=== PATIENT | male | born 1970 | race American Indian/Alaskan Native ===

== ENCOUNTER 2017-09-20 16:22 | Inpatient (IN) | payer BC ==
--- NOTE | 2017-09-20 17:00 | Emergency Department Report ---
ED Palpitations HPI - General Stated Complaint: ABNORMAL EKG Time Seen by Provider: 09/20/17 16:50 Source: patient, family, EMS Mode of arrival: Stretcher Limitations: No Limitations - History of Present Illness Initial Comments: Pt is a 46 yo male who reports no history of known medical problems except for pneumonia, who presents from urgent care stating that he was sent here due to his abnormal EKg. Pt states that he has been having swelling in his legs for 2 weeks but no known history of chf, pe, liver or kidney disease. Pt states he noted some WOLFE but no chest pain. Pt denied any history of smoking or substance abuse. Pt states his primary care doctor is Dr Polanco. Complaint: rapid heart beat -: week(s) (2) Context: occured during rest Associated Symptoms: shortness of breath, nausea/vomiting (denied vomiting), anxiety. denies: chest pain Treatments Prior to Arrival: adenosine (6 mg without any change) - Related Data Home Medications Medication Instructions Recorded Confirmed Last Taken No Known Home Medications [No 09/20/17 09/20/17 Unknown Reported Home Medications] Allergies Allergy/AdvReac Type Severity Reaction Status Date / Time No Known Allergies Allergy Unverified 09/20/17 16:54 ED Review of Systems ROS: Stated complaint: ABNORMAL EKG Other details as noted in HPI Constitutional: denies: diaphoresis Eyes: denies: eye discharge ENT: denies: throat pain Respiratory: shortness of breath, SOB with exertion. denies: wheezing Cardiovascular: as per HPI, dyspnea on exertion, edema. denies: syncope Endocrine: denies: increased hunger, increased thirst Gastrointestinal: nausea. denies: abdominal pain, vomiting Skin: denies: rash Psychiatric: anxiety, other (recent increased stressors; pt states he has had several recent deaths in his family) ED Past Medical Hx - Past Medical History Previous Medical History?: No - Surgical History Past Surgical History?: No - Social History Smoking Status: Never Smoker Substance Use Type: None - Medications Home Medications: Home Medications Medication Instructions Recorded Confirmed Last Taken Type No Known Home Medications [No 09/20/17 09/20/17 Unknown History Reported Home Medications] ED Physical Exam - General Limitations: No Limitations ED Course Vital Signs 09/20/17 09/20/17 09/20/17 16:40 16:51 17:00 Temperature 98.5 F Pulse Rate 157 H 157 H 156 H Respiratory 13 16 28 H Rate Blood Pressure 139/101 139/101 Blood Pressure [Right] O2 Sat by Pulse 97 97 Oximetry 09/20/1718 09/20/17 17:42 18:04 18:18 Temperature Pulse Rate 154 H 153 H 141 H Respiratory 16 Rate Blood Pressure 136/100 Blood Pressure 113/95 [Right] O2 Sat by Pulse 96 Oximetry 09/20/17 09/20/17 19:00 21:29 Temperature Pulse Rate 114 H 151 H Respiratory 18 16 Rate Blood Pressure Blood Pressure 111/75 147/81 [Right] O2 Sat by Pulse 95 96 Oximetry - Reevaluation(s) Reevaluation #1: 09/20/17 18:17 Pt did not respond to 2 -12 mg doses of Adenosine; Pt is receiving Metoprolol q5 min as Cardizem is not available 1809-Dr Barraza called stated to call [facility] to see pt ED Medical Decision Making - Lab Data Result diagrams: 09/20/17 17:19 09/20/17 17:19 - Medical Decision Making 1845-Dr Cummings called back and stated she will see the pt in the morning and have the hospitalist order an echo 2202- I discussed this pt with Dr Daniel to ensure that he was aware of the pt; he stated that he will see the pt; earlier in the shift, Dr Talley had requested the pt's sticker go on a piece of paper with some history and room number; Dr Talley had not been able to see the pt Critical care attestation.: If time is entered above; I have spent that time in minutes in the direct care of this critically ill patient, excluding procedure time. ED Disposition Clinical Impression: Atrial fibrillation and flutter Disposition: OP ADMIT IP TO THIS HOSP Is pt being admited?: Yes Does the pt Need Aspirin: No Condition: Fair Time of Disposition: 19:44
[2017-09-20 17:33] LABS: Basophils % (Auto) 0.3 % (0.0-1.8); Eosinophils % (Auto) 0.3 % (0.0-4.3); Hemoglobin 14.4 gm/dl (11.8-15.2); Lymphocytes # (Auto) 1.9 K/mm3 (1.2-5.4); Lymphocytes % (Auto) 26.3 % (13.4-35.0); Mean Corpuscular HGB Conc 34 % (32-34); Mean Corpuscular Hemoglobin 31 pg (28-32); Mean Corpuscular Volume 92 fl (84-94); Monocytes # (Auto) 0.7 K/mm3 (0.0-0.8); Monocytes % (Auto) 9.8 % (0.0-7.3); Platelet Count 195 K/mm3 (140-440); Red Blood Count 4.69 M/mm3 (3.65-5.03); Red Cell Distribution Width 15.4 % (13.2-15.2)
[2017-09-20] MEDS ORDERED: LOPRESSOR IV ONE ×3 (17:37→21:03)
[2017-09-20 17:48] LABS: Partial Thromboplastin Time 28.6 Sec. (24.2-36.6)
[2017-09-20 18:06] LABS: BUN/Creatinine Ratio 16; Blood Urea Nitrogen 18 mg/dL (9-20); Hemolysis Index 0
[2017-09-20 18:10] LABS: Alanine Aminotransferase 45 units/L (7-56); Albumin 3.8 g/dL (3.9-5); BUN/Creatinine Ratio 15; Blood Urea Nitrogen 17 mg/dL (9-20); Hemolysis Index 2
[2017-09-20] MEDS ORDERED: NACL ONE (18:31)
--- NOTE | 2017-09-20 19:24 | Cat Scan Report ---
FINAL REPORT EXAM: CT ANGIO CHEST HISTORY: new svt, elevated ddimer TECHNIQUE: CT chest CT angiogram with reconstructions PRIORS: None. FINDINGS: There is no evidence of filling defect within the central pulmonary vasculature to suggest the presence of acute pulmonary embolus. No evidence of mediastinal pathologic lymph node enlargement Heart and great vessels are unremarkable. The aorta is normal in caliber. No focal pulmonary infiltrate identified. No pleural fluid collection seen. No acute pulmonary abnormality noted. Visualized portion of the upper abdomen demonstrates no acute change. IMPRESSION: Negative. No CT evidence of acute pulmonary embolus
--- NOTE | 2017-09-20 21:14 | XRay Report ---
FINAL REPORT PROCEDURE: XR CHEST 1V AP TECHNIQUE: Chest radiograph anteroposterior view. CPT 19843 HISTORY: Dysrhythmia COMPARISON: No prior studies are available for comparison. FINDINGS: Heart: Normal. Mediastinum/Vessels: Normal. Lungs/Pleural space: Lungs are expanded and clear. There are no infiltrates, effusions or pneumothoraces.. Bony thorax: No acute osseous abnormality. Life support devices: None. IMPRESSION: No acute cardiopulmonary abnormality.
[2017-09-20] MEDS ORDERED: HEPARIN 10,000 UNITS/10 ML IV NR (22:48)
[2017-09-20 23:17] LABS: Hemoglobin 14.3 gm/dl (11.8-15.2)
[2017-09-20 23:31] LABS: INR 1.17 (0.87-1.13)
[2017-09-20 23:32] LABS: Partial Thromboplastin Time 28.8 Sec. (24.2-36.6)
[2017-09-20 23:40] LABS: Bilirubin,Urine NEG (Negative); Blood,Urine NEG (Negative); Color,Urine Yellow (Yellow); Mucus,Urine 1+ /HPF
[2017-09-20 23:53] LABS: Amphetamine Screen,Urine PRESUMPTIVE NEGATIVE; Benzodiazepines Screen,Urine PRESUMPTIVE NEGATIVE; Cannabinoid Screen,Urine PRESUMPTIVE NEGATIVE; Cocaine Screen,Urine PRESUMPTIVE NEGATIVE; Methadone Screen,Urine PRESUMPTIVE NEGATIVE; Opiate Screen,Urine PRESUMPTIVE NEGATIVE
[2017-09-20] MEDS: HEPARIN/ 0.45% NACL-25,000 UNIT/500 ML 25,000 UNIT/500 ML BAG IV SCH (23:55)
[2017-09-21 00:57] LABS: Creatine Kinase MB 2.6 ng/mL (0.0-4.0)
[2017-09-21] MEDS ORDERED: MILK OF MAGNESIA PO ONE (01:47)
[2017-09-21] MEDS ORDERED: TYLENOL PO PRN (01:54)
[2017-09-21] MEDS ORDERED: ZOFRAN IV PRN (01:55)
[2017-09-21] MEDS ORDERED: RESTORIL PO PRN (01:56)
[2017-09-21] MEDS: LANOXIN IV SCH ×2 (02:08→06:03)
--- NOTE | 2017-09-21 02:22 | History and Physical Report ---
CHIEF COMPLAINT: Rapid heartbeat. OTHER COMPLAINT: Abnormal EKG findings. HISTORY OF PRESENT ILLNESS: The patient is a 46-year-old male, who was sent to the Emergency Room in this hospital because of rapid heartbeat and also there was finding of abnormal EKG done at an Urgent Care. There was no history of chest pain, but there is history of shortness of breath, nausea or vomiting. Also, the patient denies history of dizziness or diaphoresis, presented for evaluation after going to the urgent care and on evaluation in the Emergency Room, the patient was noted to have irregular heartbeat and was given adenosine IV without success in correcting the irregular heartbeat. Also, the patient received a dose of Lopressor without success. PAST MEDICAL HISTORY: Pertinent for hypertension. PAST SURGICAL HISTORY: Unremarkable. FAMILY HISTORY: Noncontributory. SOCIAL HISTORY: The patient does not smoke, does not drink alcohol and does not use illicit drugs. MEDICATIONS: The patient's home medications are not known. ALLERGIES: There are no known drug allergies. REVIEW OF SYSTEMS: CONSTITUTIONAL: There is no fever, no chills, no diaphoresis. HEENT: There is no headache or sore throat. CARDIOVASCULAR: There is no chest pain, but there is palpitation. RESPIRATORY: There is history of shortness of breath, but no cough. GASTROINTESTINAL: There is no nausea, no vomiting, no abdominal pain, diarrhea or constipation. NEUROLOGICAL: There is no numbness, no dizziness, no altered mental status. MUSCULOSKELETAL: There is no joint pain or swelling. DERMATOLOGICAL: There is no skin rash or itching. GENITOURINARY: There is no dysuria, hematuria or flank pain. Rest of system review is normal. PHYSICAL EXAMINATION: GENERAL: At the time of exam, the patient was found to be alert, oriented x 3 and in mild distress due to palpitation. VITAL SIGNS: Shows normal temperature with pulse of about 153, respirations of 25, blood pressure 135/91, O2 sat of 96% on room air. HEENT: Showed pupils to be equal, round, reactive to light and accommodating. Extraocular muscles are intact. NECK: Supple with no JVD or carotid bruit. CARDIOVASCULAR SYSTEM: Show first and second heart sounds are well heard with irregularly irregular rhythm, but no murmurs. RESPIRATORY: Show good air entry on both sides of the lungs with no abnormal breath sounds. GASTROINTESTINAL SYSTEM: Show abdomen to be full, soft, nontender with no organomegaly or rigidity. NEUROLOGICAL: Shows no focal deficit. MUSCULOSKELETAL SYSTEM: Show no joint swelling or tenderness. DERMATOLOGICAL SYSTEM: Showing no skin rash. GENITOURINARY: Showing no costovertebral angle tenderness. PERTINENT LABORATORY AND IMAGING STUDIES: The patient's CBC showed normal white count, normal hemoglobin and normal hematocrit with CBC differential showing elevated monocyte count of 9.8%. The patient's coagulation studies were unremarkable. The patient's D-dimer was high with a value of 490.7. The patient's chemistry was normal except for elevated total bilirubin of 2 and elevated brain natriuretic peptide of 1189. The patient's troponin level came back normal. The patient's urinalysis show elevated urine specific gravity of 1.046 with trace ketone and negative urine leukocyte esterase, negative urine nitrite and normal urine wbc and rbc. The patient's urine drug screen came back unremarkable. IMAGING STUDIES: The patient has CT angiogram of the chest done because of elevated D-dimer and the result shows no CT evidence of active pulmonary embolism and was read as negative CT angiogram. The patient also had chest x-ray done and chest x-ray shows no active cardiopulmonary abnormality. DIAGNOSIS: New onset atrial fibrillation. PLAN: The patient will be admitted to medical floor on telemetry and because there is no available Cardizem in the pharmacy, the patient will be placed on IV Lopressor 5 mg every 6 hours for heart rate above 100 and the patient will be on IV digoxin 0.25 mg every 6 hours x 4 doses and will have digoxin level checked after the 4 doses to determine how to continue the maintenance dose. The patient will have a 2D echo done in the morning and will have cardiac enzymes involving troponin, WBC count, CK-MB checked q. 6 hours x 2 more levels. The patient will continue Cardiology consult with Dr. Cummings who was notified of the patient's presentation and he requested that 2D echo be done this morning. The patient will be on oxygen by nasal cannula at 2 liter per minute and will be on p.r.n. medications like Tylenol 650 mg by mouth every 4 hours for fever and headache and IV Zofran 4 mg every 6 hours as needed for nausea and vomiting. The patient will be started on IV heparin with bolus dose and drip. The patient's diet will be 2-g sodium diet. [facility]# [id number] OCN/NTS MTDD
[2017-09-21 07:09] LABS: Creatine Kinase MB 2.4 ng/mL (0.0-4.0)
[2017-09-21] MEDS: LOPRESSOR IV PRN (09:33)
--- NOTE | 2017-09-21 10:28 | Consultation ---
History of Present Illness Consult date: 09/21/17 Requesting physician: NESTOR CARR Consult reason: arrhythmia, atrial fibrillation History of present illness: The pt is a 46 YO male with a past medical history significant for HTN, pneumonia, obesity. He is previously unknown to our practice. He presented to urgent care yesterday with complaints of progressively worsening SOB, WOLFE, orthopnea and BLE edema for the past 2 weeks. He was found to be tachycardic and heart failure was suspected and thus he was referred to ED for further evaluation/management. Following arrival in ED, pt was found to be tachycardic with ECG consistent with AFlutter with 2:1 AV conduction with HR in 150s. On evaluation, pt remains in apparent AFlutter with HR in 150s, BPs elevated. Pt denies any chest pain, palpitations, n/v, diaphoresis, dizziness or syncope. Pt denies any prior cardiac history. Pt reports recent weight gain and his at bedside states that he does not sleep well throughout the night due to snoring and apneic periods. Pt has never been tested for or diagnosed with sleep apnea. Past History Past Medical History: hypertension Past Surgical History: No surgical history Social history: , lives with family. denies: smoking, alcohol abuse, prescription drug abuse Medications and Allergies Allergies Allergy/AdvReac Type Severity Reaction Status Date / Time No Known Allergies Allergy Unverified 09/20/17 16:54 Home Medications Medication Instructions Recorded Confirmed Last Taken Type No Known Home Medications [No 09/20/17 09/20/17 Unknown History Reported Home Medications] Active Meds: Active Medications Acetaminophen (Tylenol) 650 mg PO Q4H PRN PRN Reason: For Pain/Fever/Headache Heparin Sodium/Sodium Chloride (Heparin/ 0.45% Nacl-25,000 Unit/500 Ml) 25,000 unit in 500 mls @ 30 mls/hr IV TITR BC; Protocol Last Admin: 09/20/17 23:55 Dose: 1,500 units/hr, 30 mls/hr Amiodarone HCl 150 mg/ (Dextrose) 100 mls @ 600 mls/hr IV ONCE ONE; Protocol Stop: 09/21/17 10:39 Amiodarone HCl 900 mg/ (Dextrose) 500 mls @ 33.33 mls/hr IV DIRECT BC; Protocol Metoprolol Tartrate (Lopressor) 5 mg IV Q6H PRN PRN Reason: Tachyarrhythmias Last Admin: 09/21/17 09:33 Dose: 5 mg Ondansetron HCl (Zofran) 4 mg IV Q8H PRN PRN Reason: Nausea And Vomiting Temazepam (Restoril) 15 mg PO QHS PRN PRN Reason: Sleep Review of Systems Constitutional: no fever, no chills, no sweats Ears, nose, mouth and throat: no ear pain, no nose pain, no sinus pressure, no sinus pain Cardiovascular: orthopnea, edema, shortness of breath, dyspnea on exertion, paroxysmal nocturnal dyspnea, high blood pressure, leg edema, decreased exercise tolerance, no chest pain, no palpitations, no rapid/irregular heart beat, no syncope, no lightheadedness Respiratory: shortness of breath, dyspnea on exertion, no cough, no congestion, no wheezing, no pain on inspiration Gastrointestinal: no abdominal pain, no nausea, no vomiting, no diarrhea, no constipation, no change in bowel habits Genitourinary Male: no dysuria, no hematuria, no flank pain, no discharge, no urinary frequency, no urinary hesitancy Musculoskeletal: no neck stiffness, no neck pain, no shooting arm pain, no arm numbness/tingling, no low back pain, no shooting leg pain, no leg numbness/ tingling, no redness of joints Integumentary: no rash, no pruritis, no redness, no sores, no wounds Neurological: no head injury, no paralysis, no weakness, no parathesias, no numbness, no tingling, no seizures, no syncope Psychiatric: no anxiety Endocrine: no cold intolerance, no heat intolerance Hematologic/Lymphatic: no easy bruising, no easy bleeding, no lymphadenopathy Allergic/Immunologic: no urticaria, no wheezing, no persistent infections Physical Examination Vital Signs Pulse Resp 157 H 13 09/20/17 16:40 09/20/17 16:40 General appearance: no acute distress HEENT: Positive: PERRL, Normocephaly, Mucus Membranes Moist Neck: Positive: neck supple, trachea midline Cardiac: Positive: irregularly irregular, S1/S2, Tachycardia Lungs: Positive: Decreased Breath Sounds Neuro: Positive: Grossly Intact, Cranial Nerve 2-12 Intact Abdomen: Positive: Soft. Negative: Tender Skin: Positive: Clear. Negative: Rash, Wound Musculoskeletal: No Pain, Normal Range of Motion Extremities: Present: +2 Edema (BLE) Results 09/20/17 23:07 09/20/17 17:19 Cardiac Enzymes 09/20/17 09/21/17 09/21/17 Range/Units 17:19 00:23 06:18 AST 38 (5-40) units/L CK-MB (CK-2) 2.6 2.4 (0.0-4.0) ng/mL Coagulation 09/20/17 09/20/17 Range/Units 17: 23:07 PT 15.6 H (12.2-14.9) Sec. INR 1.17 H (0.87-1.13) APTT 28.6 28.8 (24.2-36.6) Sec. CBC 09/20/17 09/20/17 Range/Units 17: 23:07 WBC 7.1 (4.5-11.0) K/mm3 RBC 4.69 (3.65-5.03) M/mm3 Hgb 14.4 14.3 (11.8-15.2) gm/dl Hct 43.0 44.0 (35.5-45.6) % Plt Count 195 216 (140-440) K/mm3 Lymph # 1.9 (1.2-5.4) K/mm3 [place] # 0.7 (0.0-0.8) K/mm3 Eos # 0.0 (0.0-0.4) K/mm3 Baso # 0.0 (0.0-0.1) K/mm3 Comprehensive Metabolic Panel 09/20/17 09/20/17 Range/Units 17:19 17:19 Sodium 139 140 (137-145) mmol/L Potassium 4.3 4.3 (3.6-5.0) mmol/L Chloride 99.6 100.5 (98-107) mmol/L Carbon Dioxide 24 23 (22-30) mmol/L BUN 18 17 (9-20) mg/dL Creatinine 1.1 1.1 (0.8-1.5) mg/dL Glucose 77 78 (75-100) mg/dL Calcium 9.0 9.0 (8.4-10.2) mg/dL AST 38 (5-40) units/L ALT 45 (7-56) units/L Alkaline Phosphatase 59 (35-129) units/L Total Protein 7.0 (6.3-8.2) g/dL Albumin 3.8 L (3.9-5) g/dL - Imaging and Cardiology Echo: pending EKG: report reviewed, image reviewed EKG interpretations - Telemetry EKG Rhythm: Atrial Flutter - EKG Supraventricular dysrhythmia: atrial flutter Assessment and Plan Initiate IV amio. Continue close observation. Pt may require CCU placement if HR is not improved with IV amio and/or he becomes hemodynamically unstable. Obtain echo once HR is optimized. Continue IV heparin. Consider transition to OAC prior to hospital discharge. Initiate diuresis with IV lasix. Repeat BMP in AM. Obtain thyroid profile. Recommend OP sleep study as there is high suspicion for sleep apnea. Further recommendations to follow per hospital course. Assessment and plan reviewed with pt and pt's at bedside. The patient has been seen in conjunction with Dr. Diaz who agrees with the assessment and plan of care. - Patient Problems (1) Atrial flutter with rapid ventricular response Current Visit: Yes Status: Acute (2) Acute heart failure Current Visit: Yes Status: Acute (3) HTN (hypertension) Current Visit: Yes Status: Chronic (4) Obesity Current Visit: Yes Status: Chronic (5) Elevated d-dimer Current Visit: Yes Status: Acute Plan to address problem: Chest CTA negative for PE
[2017-09-21] MEDS ORDERED: CORDARONE 150 MG in D5W 97 ML IV ONE (10:30)
[2017-09-21] MEDS: CORDARONE 900 MG in D5W 482 ML IV SCH (11:02)
[2017-09-21] MEDS: LASIX IV SCH ×2 (11:03→19:03)
[2017-09-21] MEDS: HEPARIN/ 0.45% NACL-25,000 UNIT/500 ML 25,000 UNIT/500 ML BAG IV SCH ×2 (11:03→18:23)
--- NOTE | 2017-09-21 14:47 | Progress Note ---
Assessment and Plan Assessment and plan: Patient is a 46 yo man with a history of untreated hypertension for at least a year and morbid obesity who presented initially to urgent care with sob and leg edema. He was found to have extremely high heart rate unresponsive to Adenosine and admit to Telemetry. Heart rate as high as 162, it appears he has aflutter with RVR -Tachyarrhythmia, suspect aflutter with rvr: on iv heparin, Cardiology has seen and started on IV amiodarone drip, HR still uncontrolled, I ordered to transfer to ICU, CCM will evaluate -Untreated Hypertension: low salt diet, start antihypertensives -Morbid obesity: need lifestyle modification -Grief reaction from father sudden in Dec -Suspected acute heart failure: treat with iv lasix, echo pending. History Interval history: Patient was seen and examined. Follow-up on current diagnosis of tachycardia. Overnight uneventful. Patient denies any chest pain, shortness breath, nausea/ vomiting or severe headaches. Imaging, nursing note, chart, labs and old chart reviewed. Discussed with patient. at bedside. Hospitalist Physical - Physical exam Narrative exam: GEN: WDWN, morbid obese, bmi 51.7, NAD, Awake, Alert, Orientated x 3 HEENT: NCAT, EOMI, PERRL, OP Clear NECK: supple, no adenopathy, no thyromegaly, equivocal JVD/thick neck CVS/HEART: regular tachycardia, normal S1S2, pulses present bilaterally CHEST/LUNGS: diminished bilateral bs, Symmetrical chest expansion, adequate air entry bilaterally GI/Abdomen: soft, NTND, good bowel sounds, no guarding or rebound /Bladder: no suprapubic tenderness, no CVA or paraspinal tenderness EXT/Skin: leg edema, no obvious rash MSK: FROM x 4 Neuro: CN 2-12 grossly intact, no new focal deficits Psych: calm - Constitutional Vitals: Temp Pulse Resp BP Pulse Ox 97.6 F 146 H 22 128/88 98 09/21/17 08:09 09/21/17 13:10 09/21/17 08:09 09/21/17 13:10 09/21/17 13:10 General appearance: Present: no acute distress Results - Labs CBC & Chem 7: 09/20/17 23:07 09/20/17 17:19 Labs: Laboratory Last Values WBC 7.1 K/mm3 (4.5-11.0) 09/20/17 17:19 RBC 4.69 M/mm3 (3.65-5.03) 09/20/17 17:19 Hgb 14.3 gm/dl (11.8-15.2) 09/20/17 23:07 Hct 44.0 % (35.5-45.6) 09/20/17 23:07 MCV 92 fl (84-94) 09/20/17 17:19 MCH 31 pg (28-32) 09/20/17 17:19 MCHC 34 % (32-34) 09/20/17 17:19 RDW 15.4 % (13.2-15.2) H 09/20/17 17:19 Plt Count 216 K/mm3 (140-440) 09/20/17 23:07 Lymph % (Auto) 26.3 % (13.4-35.0) 09/20/17 17:19 Levy % (Auto) 9.8 % (0.0-7.3) H 09/20/17 17:19 Eos % (Auto) 0.3 % (0.0-4.3) 09/20/17 17:19 Baso % (Auto) 0.3 % (0.0-1.8) 09/20/17 17:19 Lymph # 1.9 K/mm3 (1.2-5.4) 09/20/17 17:19 Levy # 0.7 K/mm3 (0.0-0.8) 09/20/17 17:19 Eos # 0.0 K/mm3 (0.0-0.4) 09/20/17 17:19 Baso # 0.0 K/mm3 (0.0-0.1) 09/20/17 17:19 Seg Neutrophils % 63.3 % (40.0-70.0) 09/20/17 17:19 Seg Neutrophils # 4.5 K/mm3 (1.8-7.7) 09/20/17 17:19 PT 15.6 Sec. (12.2-14.9) H 09/20/17 23:07 INR 1.17 (0.87-1.13) H 09/20/17 23:07 APTT 28.8 Sec. (24.2-36.6) 09/20/17 23:07 D-Dimer 490.77 ng/mlDDU (0-234) H 09/20/17 17:19 Heparin Anti-Xa Level 0.47 U.I./ml (0.3-0.7) 09/21/17 06:18 Sodium 140 mmol/L (137-145) 09/20/17 17:19 Potassium 4.3 mmol/L (3.6-5.0) 09/20/17 17:19 Chloride 100.5 mmol/L (98-107) 09/20/17 17:19 Carbon Dioxide 23 mmol/L (22-30) 09/20/17 17:19 Anion Gap 21 mmol/L 09/20/17 17:19 BUN 17 mg/dL (9-20) 09/20/17 17:19 Creatinine 1.1 mg/dL (0.8-1.5) 09/20/17 17:19 Estimated GFR > 60 ml/min 09/20/17 17:19 BUN/Creatinine Ratio 15 % 09/20/17 17:19 Glucose 78 mg/dL (75-100) 09/20/17 17:19 Calcium 9.0 mg/dL (8.4-10.2) 09/20/17 17:19 Magnesium 1.90 mg/dL (1.7-2.3) 09/20/17 17:19 Total Bilirubin 2.00 mg/dL (0.1-1.2) H 09/20/17 17:19 AST 38 units/L (5-40) 09/20/17 17:19 ALT 45 units/L (7-56) 09/20/17 17:19 Alkaline Phosphatase 59 units/L (35-129) 09/20/17 17:19 Total Creatine Kinase 84 units/L (55-170) 09/21/17 06:18 CK-MB (CK-2) 2.4 ng/mL (0.0-4.0) 09/21/17 06:18 CK-MB (CK-2) Rel Index 2.8 (0-4) 09/21/17 06:18 Troponin T < 0.010 ng/mL (0.00-0.029) 09/21/17 06:18 NT-Pro-B Natriuret Pep 1189 pg/mL (0-450) H 09/20/17 17:19 Total Protein 7.0 g/dL (6.3-8.2) 09/20/17 17: Albumin 3.8 g/dL (3.9-5) L 09/20/17 17: Albumin/Globulin Ratio 1.2 % 09/20/17 17:19 TSH 0.971 mlU/mL (0.270-4.200) 09/21/17 11:15 Free T4 1.32 ng/dL (0.76-1.46) 09/21/17 11:15 Urine Color Yellow (Yellow) 09/20/17 21:30 Urine Turbidity Clear (Clear) 09/20/17 21:30 Urine pH 5.0 (5.0-7.0) 09/20/17 21:30 Ur Specific [place] 1.046 (1.003-1.030) H 09/20/17 21:30 Urine Protein 100 mg/dl mg/dL (Negative) 09/20/17 21:30 Urine Glucose (UA) Neg mg/dL (Negative) 09/20/17 21:30 Urine Ketones Tr mg/dL (Negative) 09/20/17 21:30 Urine Blood Neg (Negative) 09/20/17 21:30 Urine Nitrite Neg (Negative) 09/20/17 21:30 Urine Bilirubin Neg (Negative) 09/20/17 21:30 Urine Urobilinogen 2.0 mg/dL (<2.0) 09/20/17 21:30 Ur Leukocyte Esterase Neg (Negative) 09/20/17 21:30 Urine WBC (Auto) 1.0 /HPF (0.0-6.0) 09/20/17 21:30 Urine RBC (Auto) 1.0 /HPF (0.0-6.0) 09/20/17 21:30 U Epithel Cells (Auto) < 1.0 /HPF (0-13.0) 09/20/17 21:30 Urine Mucus 1+ /HPF 09/20/17 21:30 Urine Opiates Screen Presumptive negative 09/20/17 21:30 Urine Methadone Screen Presumptive negative 09/20/17 21:30 Ur Barbiturates Screen Presumptive negative 09/20/17 21:30 Ur Phencyclidine Scrn Presumptive negative 09/20/17 21:30 Ur Amphetamines Screen Presumptive negative 09/20/17 21:30 U Benzodiazepines Scrn Presumptive negative 09/20/17 21:30 Urine Cocaine Screen Presumptive negative 09/20/17 21:30 U Marijuana (THC) Screen Presumptive negative 09/20/17 21:30 Drugs of Abuse Note Disclamer 09/20/17 21:30
[2017-09-21] MEDS ORDERED: LOPRESSOR IV ONE (16:00)
[2017-09-21] MEDS: LOPRESSOR PO SCH ×2 (16:24→22:26)
--- NOTE | 2017-09-21 18:01 | Consultation ---
History of Present Illness Consult date: 09/21/17 Requesting physician: DANNI RUELAS Reason for consult: other (Atrial fibrillation with RVR requiring hemodynamic monitoring and IV antiarrtyhmics) History of present illness: Pt is a 46 yo male who reports no history of known medical problems except for pneumonia, who presents from urgent care stating that he was sent here due to his abnormal EKG. He had travelled to [place] with his and apparently he had noted some feet swelling and fatigue then. This was about 2 weeks ago. On his return he went to an urgent care for fatigue and exertional dyspnea and leg swelling. Patient denied any history of smoking or substance abuse. Following arrival in ED, patient was found to be tachycardic with ECG consistent with AFlutter with 2:1 AV conduction with HR in 150s. On evaluation, pt remains in apparent AFlutter with HR in 150s, BPs elevated. Patient denies any chest pain, palpitations, n/v, diaphoresis, dizziness or syncope. Pt denies any prior cardiac history. Pt reports recent weight gain and his at bedside states that he does not sleep well throughout the night due to snoring and apneic periods. Pt has never been tested for or diagnosed with sleep apnea. He denies any history of CHF, PE, heart disease, respiratory disease. Patient was seen and examined. Vitals, labs, medications, chart reviewed. REVIEW OF SYSTEMS Constitutional: denies: diaphoresis Eyes: denies: eye discharge ENT: denies: throat pain Respiratory: shortness of breath, SOB with exertion. denies: wheezing Cardiovascular: as per HPI, dyspnea on exertion, edema. denies: syncope Endocrine: denies: increased hunger, increased thirst Gastrointestinal: nausea. denies: abdominal pain, vomiting Skin: denies: rash Psychiatric: anxiety, other (recent increased stressors; pt states he has had several recent deaths in his family) Past History Past Medical History: hypertension Past Surgical History: No surgical history Social history: , lives with family. denies: smoking, alcohol abuse, prescription drug abuse Medications and Allergies Allergies Allergy/AdvReac Type Severity Reaction Status Date / Time No Known Allergies Allergy Unverified 09/20/17 16:54 Home Medications Medication Instructions Recorded Confirmed Last Taken Type No Known Home Medications [No 09/20/17 09/20/17 Unknown History Reported Home Medications] Active Meds: Active Medications Acetaminophen (Tylenol) 650 mg PO Q4H PRN PRN Reason: For Pain/Fever/Headache Furosemide (Lasix) 40 mg IV 0600,1800 BC Last Admin: 09/21/17 11:03 Dose: 40 mg Heparin Sodium/Sodium Chloride (Heparin/ 0.45% Nacl-25,000 Unit/500 Ml) 25,000 unit in 500 mls @ 30 mls/hr IV TITR BC; Protocol Last Admin: 09/21/17 11:03 Dose: 1,500 units/hr, 30 mls/hr Amiodarone HCl 900 mg/ (Dextrose) 500 mls @ 33.33 mls/hr IV DIRECT BC; Protocol Last Titration: 09/21/17 17:10 Dose: 0.5 mg/min, 16.66 mls/hr Metoprolol Tartrate (Lopressor) 5 mg IV Q6H PRN PRN Reason: Tachyarrhythmias Last Admin: 09/21/17 09:33 Dose: 5 mg Metoprolol Tartrate (Lopressor) 50 mg PO TID BC Last Admin: 09/21/17 16:24 Dose: 50 mg Ondansetron HCl (Zofran) 4 mg IV Q8H PRN PRN Reason: Nausea And Vomiting Temazepam (Restoril) 15 mg PO QHS PRN PRN Reason: Sleep Physical Examination Vital signs: Vital Signs Pulse Resp 157 H 13 09/20/17 16:40 09/20/17 16:40 GEN: Well developed black man, morbid obese, bmi 51.7, NAD, Awake, Alert, Orientated x 3 HEENT: NCAT, EOMI, PERRL, OP Clear NECK: supple, no adenopathy, no thyromegaly, equivocal JVD/thick neck CVS/HEART: regular tachycardia, normal S1S2, pulses present bilaterally CHEST/LUNGS: diminished bilateral bs, Symmetrical chest expansion, adequate air entry bilaterally GI/Abdomen: soft, NTND, good bowel sounds, no guarding or rebound /Bladder: no suprapubic tenderness, no CVA or paraspinal tenderness EXT/Skin: leg edema, no obvious rash MSK: FROM x 4 Neuro: CN 2-12 grossly intact, no new focal deficits Psych: calm Results - Laboratory Findings CBC and BMP: 09/22/17 04:00 09/22/17 04:00 PT/INR, D-dimer PT 15.6 Sec. (12.2-14.9) H 09/20/17 23:07 INR 1.17 (0.87-1.13) H 09/20/17 23:07 D-Dimer 490.77 ng/mlDDU (0-234) H 09/20/17 17:19 Abnormal lab findings: Abnormal Labs 09/20/1718 18 17:19 17:19 17:19 RDW 15.4 H [place] % (Auto) 9.8 H PT INR D-Dimer 490.77 H Total Bilirubin NT-Pro-B Natriuret Pep 1189 H Albumin Ur Specific [place] 09/20/1718 18 17:19 21:30 23:07 RDW [place] % (Auto) PT 15.6 H INR 1.17 H D-Dimer Total Bilirubin 2.00 H NT-Pro-B Natriuret Pep Albumin 3.8 L Ur Specific [place] 1.046 H Assessment and Plan Atrial fibrillation with RVR Cardiomyopathy based on radiographic findings, Echo pending HTN-untreated -Severe obesity Probably sleep apnea Probable Pulmonary HTN -Continue with amiodarone for rate control -Added one dose of metoprolol for rate control -Anticoagulation -Get thyroid function studies -Get 2 D echocardiogram to evaluate right heart(pulmonary HTN) and LVEF -Sleep study as out patient - Life style modifications and weight loss -Monitor hemodynamics Care plan disicussed with the RN, patient and his who was at the bedside
[2017-09-22 04:38] LABS: Hematocrit 44.2 % (35.5-45.6); Hemoglobin 14.8 gm/dl (11.8-15.2); Mean Corpuscular HGB Conc 33 % (32-34); Mean Corpuscular Hemoglobin 31 pg (28-32); Mean Corpuscular Volume 92 fl (84-94); Platelet Count 211 K/mm3 (140-440); Red Blood Count 4.81 M/mm3 (3.65-5.03); Red Cell Distribution Width 15.2 % (13.2-15.2)
[2017-09-22 05:17] LABS: Alanine Aminotransferase 51 units/L (7-56); Albumin 3.8 g/dL (3.9-5); BUN/Creatinine Ratio 19; Blood Urea Nitrogen 21 mg/dL (9-20); Calcium 8.7 mg/dL (8.4-10.2); Chol/HDL Ratio 3.87 %; HDL Cholesterol 41 mg/dL (40-59); Hemolysis Index 7; LDL Cholesterol,Direct 97 mg/dL (50-130)
[2017-09-22] MEDS: LASIX IV SCH ×2 (05:24→17:52)
[2017-09-22] MEDS: LOPRESSOR PO SCH ×2 (09:20→13:37)
--- NOTE | 2017-09-22 09:24 | Progress Note ---
Assessment and Plan Assessment and plan: Patient is a 46 yo man with a history of untreated hypertension for at least a year and morbid obesity who presented initially to urgent care with sob and leg edema. He was found to have extremely high heart rate unresponsive to Adenosine and admit to Telemetry. Heart rate as high as 162, it appears he has aflutter with RVR -A. flutter with rvr: on iv heparin drip and IV amiodarone drip, HR controlled, ?start Warfarin vs Eliquis, will defer to Cardiology -Untreated Hypertension: low salt diet, start antihypertensives -Morbid obesity: need lifestyle modification -Grief reaction from father sudden in Dec -Suspected Acute heart failure: treat with iv lasix, Echo still pending. -Suspect TAURUS: has been counseled on getting outpatient sleep study History Interval history: Patient was seen and examined. Follow-up on current diagnosis of tachycardia. Overnight uneventful except insomnia. Patient denies any chest pain, shortness breath, nausea/vomiting or severe headaches. Imaging, nursing note, chart, labs and old chart reviewed. Discussed with patient. Currently in ICU on heparin and amiodorane drip. Hospitalist Physical - Physical exam Narrative exam: GEN: WDWN, morbid obese, bmi 51.7, NAD, Awake, Alert, Orientated x 3 HEENT: NCAT, EOMI, PERRL, OP Clear NECK: supple, no adenopathy, no thyromegaly, equivocal JVD/thick neck CVS/HEART: regular irregular, normal S1S2, pulses present bilaterally CHEST/LUNGS: diminished bilateral bs, Symmetrical chest expansion, adequate air entry bilaterally GI/Abdomen: soft, NTND, good bowel sounds, no guarding or rebound /Bladder: no suprapubic tenderness, no CVA or paraspinal tenderness EXT/Skin: leg edema, no obvious rash MSK: FROM x 4 Neuro: CN 2-12 grossly intact, no new focal deficits Psych: calm - Constitutional Vitals: Temp Pulse Resp BP Pulse Ox 98.2 F 94 H 16 105/79 95 09/22/17 03:44 09/22/17 08:11 09/22/17 08:11 09/22/17 08:11 09/22/17 08:11 General appearance: Present: no acute distress Results - Labs CBC & Chem 7: 09/22/17 04:00 09/22/17 04:00 Labs: Laboratory Last Values WBC 8.2 K/mm3 (4.5-11.0) 09/22/17 04:00 RBC 4.81 M/mm3 (3.65-5.03) 09/22/17 04:00 Hgb 14.8 gm/dl (11.8-15.2) 09/22/17 04:00 Hct 44.2 % (35.5-45.6) 09/22/17 04:00 MCV 92 fl (84-94) 09/22/17 04:00 MCH 31 pg (28-32) 09/22/17 04:00 MCHC 33 % (32-34) 09/22/17 04:00 RDW 15.2 % (13.2-15.2) 09/22/17 04:00 Plt Count 211 K/mm3 (140-440) 09/22/17 04:00 Lymph % (Auto) 26.3 % (13.4-35.0) 09/20/17 17:19 [place] % (Auto) 9.8 % (0.0-7.3) H 09/20/17 17:19 Eos % (Auto) 0.3 % (0.0-4.3) 09/20/17 17:19 Baso % (Auto) 0.3 % (0.0-1.8) 09/20/17 17:19 Lymph # 1.9 K/mm3 (1.2-5.4) 09/20/17 17:19 [place] # 0.7 K/mm3 (0.0-0.8) 09/20/17 17:19 Eos # 0.0 K/mm3 (0.0-0.4) 09/20/17 17:19 Baso # 0.0 K/mm3 (0.0-0.1) 09/20/17 17:19 Seg Neutrophils % 63.3 % (40.0-70.0) 09/20/17 17:19 Seg Neutrophils # 4.5 K/mm3 (1.8-7.7) 09/20/17 17:19 PT 15.6 Sec. (12.2-14.9) H 09/20/17 23:07 INR 1.17 (0.87-1.13) H 09/20/17 23:07 APTT 28.8 Sec. (24.2-36.6) 09/20/17 23:07 D-Dimer 490.77 ng/mlDDU (0-234) H 09/20/17 17:19 Heparin Anti-Xa Level 0.50 U.I./ml (0.3-0.7) 09/22/17 06:51 Sodium 134 mmol/L (137-145) L 09/22/17 04:00 Potassium 3.9 mmol/L (3.6-5.0) 09/22/17 04:00 Chloride 94.5 mmol/L (98-107) L 09/22/17 04:00 Carbon Dioxide 23 mmol/L (22-30) 09/22/17 04:00 Anion Gap 20 mmol/L 09/22/17 04:00 BUN 21 mg/dL (9-20) H 09/22/17 04:00 Creatinine 1.1 mg/dL (0.8-1.5) 09/22/17 04:00 Estimated GFR > 60 ml/min 09/22/17 04:00 BUN/Creatinine Ratio 19 % 09/22/17 04:00 Glucose 240 mg/dL (75-100) H 09/22/17 04:00 POC Glucose 108 (70-105) H 09/22/17 05:24 Calcium 8.7 mg/dL (8.4-10.2) 09/22/17 04:00 Magnesium 1.90 mg/dL (1.7-2.3) 09/20/17 17:19 Total Bilirubin 1.10 mg/dL (0.1-1.2) 09/22/17 04:00 AST 39 units/L (5-40) 09/22/17 04:00 ALT 51 units/L (7-56) 09/22/17 04:00 Alkaline Phosphatase 76 units/L (35-129) 09/22/17 04:00 Total Creatine Kinase 84 units/L (55-170) 09/21/17 06:18 CK-MB (CK-2) 2.4 ng/mL (0.0-4.0) 09/21/17 06:18 CK-MB (CK-2) Rel Index 2.8 (0-4) 09/21/17 06:18 Troponin T < 0.010 ng/mL (0.00-0.029) 09/21/17 06:18 NT-Pro-B Natriuret Pep 1189 pg/mL (0-450) H 09/20/17 17:19 Total Protein 7.2 g/dL (6.3-8.2) 09/22/17 04:00 Albumin 3.8 g/dL (3.9-5) L 09/22/17 04:00 Albumin/Globulin Ratio 1.1 % 09/22/17 04:00 Triglycerides 111 mg/dL (2-149) 09/22/17 04:00 Cholesterol 159 mg/dL (50-199) 09/22/17 04:00 LDL Cholesterol Direct 97 mg/dL (50-130) 09/22/17 04:00 HDL Cholesterol 41 mg/dL (40-59) 09/22/17 04:00 Cholesterol/HDL Ratio 3.87 % 09/22/17 04:00 TSH 0.971 mlU/mL (0.270-4.200) 09/21/17 11:15 Free T4 1.32 ng/dL (0.76-1.46) 09/21/17 11:15 Urine Color Yellow (Yellow) 09/20/17 21:30 Urine Turbidity Clear (Clear) 09/20/17 21:30 Urine pH 5.0 (5.0-7.0) 09/20/17 21:30 Ur Specific [place] 1.046 (1.003-1.030) H 09/20/17 21:30 Urine Protein 100 mg/dl mg/dL (Negative) 09/20/17 21:30 Urine Glucose (UA) Neg mg/dL (Negative) 09/20/17 21:30 Urine Ketones Tr mg/dL (Negative) 09/20/17 21:30 Urine Blood Neg (Negative) 09/20/17 21:30 Urine Nitrite Neg (Negative) 09/20/17 21:30 Urine Bilirubin Neg (Negative) 09/20/17 21:30 Urine Urobilinogen 2.0 mg/dL (<2.0) 09/20/17 21:30 Ur Leukocyte Esterase Neg (Negative) 09/20/17 21:30 Urine WBC (Auto) 1.0 /HPF (0.0-6.0) 09/20/17 21:30 Urine RBC (Auto) 1.0 /HPF (0.0-6.0) 09/20/17 21:30 U Epithel Cells (Auto) < 1.0 /HPF (0-13.0) 09/20/17 21:30 Urine Mucus 1+ /HPF 09/20/17 21:30 Urine Opiates Screen Presumptive negative 09/20/17 21:30 Urine Methadone Screen Presumptive negative 09/20/17 21:30 Ur Barbiturates Screen Presumptive negative 09/20/17 21:30 Ur Phencyclidine Scrn Presumptive negative 09/20/17 21:30 Ur Amphetamines Screen Presumptive negative 09/20/17 21:30 U Benzodiazepines Scrn Presumptive negative 09/20/17 21:30 Urine Cocaine Screen Presumptive negative 09/20/17 21:30 U Marijuana (THC) Screen Presumptive negative 09/20/17 21:30 Drugs of Abuse Note Disclamer 09/20/17 21:30
--- NOTE | 2017-09-22 09:58 | Progress Note ---
Assessment and Plan Initiate PO amio 400mg BID and d/c amio gtt following 2nd PO dose of amio. Continue PO lopressor. Obtain echo. Continue IV heparin. Consider transition to OAC prior to hospital discharge. Continue diuresis with IV lasix. Repeat BMP in AM. Pt with probable sleep apnea. For sleep study as OP per pulmonary. Currently stable cardiac status. Pt may tx out of ICU to telemetry from cardiology standpoint. Assessment and plan reviewed with pt and pt's at bedside. The patient has been seen in conjunction with Dr. Diaz who agrees with the assessment and plan of care. - Patient Problems (1) Atrial flutter with rapid ventricular response Current Visit: Yes Status: Acute (2) Acute heart failure Current Visit: Yes Status: Acute (3) HTN (hypertension) Current Visit: Yes Status: Chronic (4) Obesity Current Visit: Yes Status: Chronic (5) Elevated d-dimer Current Visit: Yes Status: Acute Subjective Date of service: 09/22/17 Principal diagnosis: AFlutter with RVR; HF Interval history: pt resting comfortably in bed, no current cardiac complaints. Remains in AFlutter with HR in 90s, BPs stable, amio gtt infusing. BLE edema improving. Objective Last Vital Signs Temp 98.2 F 09/22/17 03:44 Pulse 94 H 09/22/17 08:11 Resp 16 09/22/17 08:11 BP 105/79 09/22/17 08:11 Pulse Ox 95 09/22/17 08:11 - Physical Examination HEENT: Positive: PERRL, Normocephaly, Mucus Membranes Moist Neck: Positive: neck supple, trachea midline Cardiac: Positive: irregularly irregular, S1/S2 Lungs: Positive: Decreased Breath Sounds Neuro: Positive: Grossly Intact, Cranial Nerve 2-12 Intact Abdomen: Positive: Soft. Negative: Tender Skin: Positive: Clear. Negative: Rash, Wound Musculoskeletal: No Pain, Normal Range of Motion Extremities: Present: +2 Edema (BLE) - Labs and Meds Cardiac Enzymes 09/22/17 Range/Units 04:00 AST 39 (5-40) units/L Lipids 09/22/17 Range/Units 04:00 Triglycerides 111 (2-149) mg/dL Cholesterol 159 (50-199) mg/dL HDL Cholesterol 41 (40-59) mg/dL Cholesterol/HDL Ratio 3.87 % CBC 09/22/17 Range/Units 04:00 WBC 8.2 (4.5-11.0) K/mm3 RBC 4.81 (3.65-5.03) M/mm3 Hgb 14.8 (11.8-15.2) gm/dl Hct 44.2 (35.5-45.6) % Plt Count 211 (140-440) K/mm3 Comprehensive Metabolic Panel 09/22/17 Range/Units 04:00 Sodium 134 L (137-145) mmol/L Potassium 3.9 (3.6-5.0) mmol/L Chloride 94.5 L (98-107) mmol/L Carbon Dioxide 23 (22-30) mmol/L BUN 21 H (9-20) mg/dL Creatinine 1.1 (0.8-1.5) mg/dL Glucose 240 H (75-100) mg/dL Calcium 8.7 (8.4-10.2) mg/dL AST 39 (5-40) units/L ALT 51 (7-56) units/L Alkaline Phosphatase 76 (35-129) units/L Total Protein 7.2 (6.3-8.2) g/dL Albumin 3.8 L (3.9-5) g/dL - Imaging and Cardiology EKG: report reviewed, image reviewed Echo: pending - Telemetry EKG Rhythm: Atrial Flutter
[2017-09-22] MEDS: CORDARONE 900 MG in D5W 482 ML IV SCH (10:20)
[2017-09-22] MEDS: HEPARIN/ 0.45% NACL-25,000 UNIT/500 ML 25,000 UNIT/500 ML BAG IV SCH (10:21)
--- NOTE | 2017-09-22 10:40 | Progress Note ---
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 - Sleep study as out patient - Life style modifications and weight loss counselled - Monitor hemodynamics per floor protocol - GI prophylaxis ordered - Flu & pneumovax addressed per protocol .....tentative transfer to telemetry once cleared by cardiology ....35' Subjective Date of service: 09/22/17 Principal diagnosis: Atrial Flutter with RVR; HFrEF (25%); Morbid Obesity; Likely TAURUS Interval history: Patient is seen today for: Atrial Flutter with RVR; HFrEF (25%); Morbid Obesity ; Likely TAURUS Seen and examined at bedside; 24hour events reviewed; nursing and respiratory care staff consulted; no adverse overnight events reported to me; sitting up in bed; remains on IV heparin; feels a little better; admits to snoring and non- restorative sleep; denies acute chest pains or palpitations Objective Vital Signs - 12hr 09/21/17 09/21/17 09/21/17 22:40 22:50 23:00 Temperature Pulse Rate 96 H 96 H 81 Pulse Rate [ From Monitor] Respiratory 20 11 L 14 Rate Blood Pressure 118/69 118/69 118/69 O2 Sat by Pulse 99 97 97 Oximetry 09/21/17 09/21/17 09/21/17 23:10 23:20 23:22 Temperature Pulse Rate 95 H 95 H 84 Pulse Rate [ From Monitor] Respiratory 14 24 29 H Rate Blood Pressure 118/69 118/69 118/69 O2 Sat by Pulse 99 99 98 Oximetry 09/21/17 09/21/17 09/21/17 23:30 23:38 23:40 Temperature 98.3 F Pulse Rate 94 H 107 H Pulse Rate [ From Monitor] Respiratory 19 14 Rate Blood Pressure 118/69 118/69 O2 Sat by Pulse 97 99 Oximetry 09/21/17 09/22/17 09/22/17 23:50 00:00 00:10 Temperature Pulse Rate 134 H 90 79 Pulse Rate [ 71 From Monitor] Respiratory 33 H 12 15 Rate Blood Pressure 118/69 118/69 116/75 O2 Sat by Pulse 99 97 Oximetry 09/22/17 09/22/17 09/22/17 00:20 00:30 00:40 Temperature Pulse Rate 84 74 93 H Pulse Rate [ From Monitor] Respiratory 9 L 16 17 Rate Blood Pressure 116/75 119/86 O2 Sat by Pulse 97 96 Oximetry 09/22/17 09/22/17 09/22/17 00:51 01:00 01:11 Temperature Pulse Rate 93 H 74 93 H Pulse Rate [ From Monitor] Respiratory 25 H 22 12 Rate Blood Pressure 119/86 135/83 135/83 O2 Sat by Pulse 98 86 96 Oximetry 09/22/17 09/22/17 09/22/17 01:21 01:30 01:41 Temperature Pulse Rate 93 H 94 H 94 H Pulse Rate [ From Monitor] Respiratory 18 16 30 H Rate Blood Pressure 135/83 131/82 131/82 O2 Sat by Pulse 92 87 96 Oximetry 09/22/17 09/22/17 09/22/17 01:51 02:01 02:11 Temperature Pulse Rate 93 H 88 93 H Pulse Rate [ From Monitor] Respiratory 19 22 14 Rate Blood Pressure 131/82 121/76 121/76 O2 Sat by Pulse 97 92 96 Oximetry 09/22/17 09/22/17 09/22/17 02:21 02:30 02:41 Temperature Pulse Rate 93 H 93 H 94 H Pulse Rate [ From Monitor] Respiratory 13 10 L 21 Rate Blood Pressure 121/76 127/75 127/75 O2 Sat by Pulse 99 100 93 Oximetry 09/22/17 09/22/17 09/22/17 02:51 03:00 03:11 Temperature Pulse Rate 94 H 93 H 93 H Pulse Rate [ From Monitor] Respiratory 20 10 L 20 Rate Blood Pressure 127/75 124/85 124/85 O2 Sat by Pulse 94 98 96 Oximetry 09/22/17 09/22/17 09/22/17 03:21 03:31 03:41 Temperature Pulse Rate 93 H 93 H 79 Pulse Rate [ From Monitor] Respiratory 18 21 12 Rate Blood Pressure 124/85 124/85 124/85 O2 Sat by Pulse 94 98 98 Oximetry 09/22/17 09/22/17 09/22/17 03:44 03:51 04:00 Temperature 98.2 F Pulse Rate 83 Pulse Rate [ 83 From Monitor] Respiratory 10 L 22 Rate Blood Pressure 124/85 O2 Sat by Pulse 98 Oximetry 09/22/17 09/22/17 09/22/17 04:01 04:11 04:21 Temperature Pulse Rate 93 H 92 H 104 H Pulse Rate [ From Monitor] Respiratory 15 13 14 Rate Blood Pressure 124/85 124/85 124/85 O2 Sat by Pulse 95 97 97 Oximetry 09/22/17 09/22/17 09/22/17 04:31 04:41 04:51 Temperature Pulse Rate 99 H 92 H 74 Pulse Rate [ From Monitor] Respiratory 19 20 17 Rate Blood Pressure 124/85 105/79 105/79 O2 Sat by Pulse 91 96 97 Oximetry 09/22/17 09/22/17 09/22/17 05:01 05:11 05:21 Temperature Pulse Rate 83 93 H 93 H Pulse Rate [ From Monitor] Respiratory 26 H 24 21 Rate Blood Pressure 105/79 105/79 105/79 O2 Sat by Pulse 96 93 96 Oximetry 09/22/17 09/22/17 09/22/17 05:31 05:41 05:51 Temperature Pulse Rate 114 H 94 H 94 H Pulse Rate [ From Monitor] Respiratory 30 H 22 27 H Rate Blood Pressure 105/79 105/79 105/79 O2 Sat by Pulse 98 94 97 Oximetry 09/22/17 09/22/17 09/22/17 06:01 06:11 06:21 Temperature Pulse Rate 93 H 94 H 93 H Pulse Rate [ From Monitor] Respiratory 25 H 25 H 25 H Rate Blood Pressure 105/79 105/79 105/79 O2 Sat by Pulse 97 95 98 Oximetry 09/22/17 09/22/17 09/22/17 06:31 06:41 06:51 Temperature Pulse Rate 94 H 89 93 H Pulse Rate [ From Monitor] Respiratory 18 30 H 14 Rate Blood Pressure 105/79 105/79 105/79 O2 Sat by Pulse 94 95 97 Oximetry 09/22/17 09/22/17 09/22/17 07:01 07:11 07:21 Temperature Pulse Rate 94 H 94 H 94 H Pulse Rate [ From Monitor] Respiratory 18 22 22 Rate Blood Pressure 105/79 105/79 105/79 O2 Sat by Pulse 95 98 94 Oximetry 09/22/17 09/22/17 09/22/17 07:31 07:41 07:51 Temperature Pulse Rate 94 H 94 H 94 H Pulse Rate [ From Monitor] Respiratory 10 L 24 30 H Rate Blood Pressure 105/79 105/79 105/79 O2 Sat by Pulse 89 97 96 Oximetry 09/22/17 09/22/17 09/22/17 07:57 08:00 08:01 Temperature 97.5 F L Pulse Rate 94 H Pulse Rate [ 94 H From Monitor] Respiratory 15 14 Rate Blood Pressure 105/79 O2 Sat by Pulse 96 96 Oximetry 09/22/17 09/22/17 09/22/17 08:11 08:21 08:31 Temperature Pulse Rate 94 H 94 H 108 H Pulse Rate [ From Monitor] Respiratory 16 18 22 Rate Blood Pressure 105/79 105/79 105/79 O2 Sat by Pulse 95 97 98 Oximetry 09/22/17 09/22/17 09/22/17 08:41 08:51 09:01 Temperature Pulse Rate 94 H 94 H 94 H Pulse Rate [ From Monitor] Respiratory 26 H 19 27 H Rate Blood Pressure 105/79 105/79 105/79 O2 Sat by Pulse 96 96 95 Oximetry 09/22/17 09/22/17 09/22/17 09:11 09:21 09:31 Temperature Pulse Rate 94 H 90 89 Pulse Rate [ From Monitor] Respiratory 18 24 20 Rate Blood Pressure 105/79 105/79 105/79 O2 Sat by Pulse 99 95 96 Oximetry 09/22/17 09/22/17 09/22/17 09:41 09:51 10:01 Temperature Pulse Rate 94 H 94 H 94 H Pulse Rate [ From Monitor] Respiratory 15 18 23 Rate Blood Pressure 105/79 105/79 105/79 O2 Sat by Pulse 99 97 97 Oximetry Constitutional: alert, appears uncomfortable, other (morbidly obese) Eyes: non-icteric ENT: oropharynx moist, other (mallampatti IV oropharynx) Neck: supple, no lymphadenopathy, no JVD, other (large neck circumference) Effort: mildly labored Ascultation: Bilateral: diminished breath sounds, rales (posterior bases) Percussion: Bilateral: not dull Cardiovascular: irregular rhythm, murmur noted Gastrointestinal: normoactive bowel sounds, soft, non-tender, other (no palpable HSM) Integumentary: rash (stasis dermatitis) Extremities: no cyanosis, pulses normal, no ischemia or petechiae, edema Neurologic: normal mental status, non-focal exam, pupils equal and round, CN II- XII normal Psychiatric: mood appropriate, affect normal CBC and BMP: 09/22/17 04:00 18 11:09 ABG, PT/INR, D-dimer: PT/INR, D-dimer PT 15.6 Sec. (12.2-14.9) H 09/20/17 23:07 INR 1.17 (0.87-1.13) H 09/20/17 23:07 D-Dimer 490.77 ng/mlDDU (0-234) H 09/20/17 17:19 Abnormal lab findings: Abnormal Labs 09/20/17 09/20/17 09/20/17 17:19 17:19 17:19 RDW 15.4 H [place] % (Auto) 9.8 H PT INR D-Dimer 490.77 H Sodium Chloride BUN Glucose POC Glucose Total Bilirubin NT-Pro-B Natriuret Pep 1189 H Albumin Ur Specific [place] 09/20/17 09/20/1718 17:19 21:30 23:07 RDW [place] % (Auto) PT 15.6 H INR 1.17 H D-Dimer Sodium Chloride BUN Glucose POC Glucose Total Bilirubin 2.00 H NT-Pro-B Natriuret Pep Albumin 3.8 L Ur Specific [place] 1.046 H 09/22/17 09/22/17 09/22/17 00:19 04:00 05:24 RDW [place] % (Auto) PT INR D-Dimer Sodium 134 L Chloride 94.5 L BUN 21 H Glucose 240 H POC Glucose 107 H 108 H Total Bilirubin NT-Pro-B Natriuret Pep Albumin 3.8 L Ur Specific [place] Chest x-ray: image reviewed (cardiomegaly without focal infiltrate or effusion) Allied health notes reviewed: nursing
[2017-09-22] MEDS: CORDARONE PO SCH ×2 (13:33→22:31)
[2017-09-22] MEDS: LOPRESSOR IV PRN (22:31)
[2017-09-23] MEDS: LOPRESSOR PO SCH ×4 (00:20→22:20)
[2017-09-23] MEDS: LASIX IV SCH ×2 (08:00→19:03)
[2017-09-23] MEDS: CORDARONE PO SCH ×2 (09:40→22:18)
--- NOTE | 2017-09-23 10:43 | Progress Note ---
Assessment and Plan Echo reviewed - EF 20-25%, mild LVH, RV mild to mod dilated, RV systolic function severely reduced, RA severely dilated. Continue PO amio and PO lopressor. Initiate lisinopril. Plan for coronary angiography on Tuesday AM to r/o ischemic CMP. Continue IV heparin. Consider transition to OAC prior to hospital discharge. Pt is a good candidate for NOAC. Continue diuresis with IV lasix. Repeat BMP in AM. Pt with probable sleep apnea. For sleep study as OP per pulmonary. Currently stable cardiac status. Pt may tx out of ICU to telemetry from cardiology standpoint. Assessment and plan reviewed with pt and pt's at bedside. The patient has been seen in conjunction with Dr. Diaz who agrees with the assessment and plan of care. - Patient Problems (1) Acute systolic heart failure Current Visit: Yes Status: Acute (2) Dilated cardiomyopathy Current Visit: Yes Status: Chronic (3) Right ventricular dysfunction Current Visit: Yes Status: Acute (4) Atrial flutter with rapid ventricular response Current Visit: Yes Status: Acute (5) HTN (hypertension) Current Visit: Yes Status: Chronic (6) Obesity Current Visit: Yes Status: Chronic (7) Elevated d-dimer Current Visit: Yes Status: Acute (8) Sleep apnea Current Visit: Yes Status: Suspected Subjective Date of service: 09/23/17 Principal diagnosis: Atrial Flutter with RVR; HFrEF (25%); Morbid Obesity; Likely TAURUS Interval history: pt resting comfortably in bed, no current cardiac complaints. Remains in AFlutter with HR in 90s, BPs stable, BLE edema improving. Objective Last Vital Signs Temp 98.0 F 09/23/17 04:00 Pulse 93 H 09/23/17 09:40 Resp 16 09/23/17 05:08 BP 136/82 09/23/17 09:40 Pulse Ox 96 09/23/17 05:08 - Physical Examination General: No Apparent Distress HEENT: Positive: PERRL, Normocephaly, Mucus Membranes Moist Neck: Positive: neck supple, trachea midline Cardiac: Positive: irregularly irregular, S1/S2 Lungs: Positive: Decreased Breath Sounds Neuro: Positive: Grossly Intact, Cranial Nerve 2-12 Intact Abdomen: Positive: Soft. Negative: Tender Skin: Positive: Clear. Negative: Rash, Wound Musculoskeletal: No Pain, Normal Range of Motion Extremities: Present: +2 Edema (BLE) - Imaging and Cardiology EKG: report reviewed, image reviewed Echo: report reviewed (EF 20-25%, mild LVH, RV mild to mod dilated, RV systolic function severely reduced, RA severely dilated, ) - Telemetry EKG Rhythm: Sinus Rhythm - Allied health notes Allied health notes reviewed: nursing
[2017-09-23 12:03] LABS: BUN/Creatinine Ratio 17; Blood Urea Nitrogen 20 mg/dL (9-20); Calcium 8.9 mg/dL (8.4-10.2); Hemolysis Index 26
[2017-09-23] MEDS: PEPCID PO SCH ×2 (12:23→22:18)
[2017-09-23] MEDS: ZESTRIL PO SCH (12:23)
--- NOTE | 2017-09-23 12:44 | Progress Note ---
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 - Sleep study as out patient - Life style modifications and weight loss counselled - Monitor hemodynamics per floor protocol - GI prophylaxis ordered - Flu & pneumovax addressed per protocol .....tentative transfer to telemetry once cleared by cardiology ....35' Subjective Date of service: 09/23/17 Principal diagnosis: Atrial Flutter with RVR; HFrEF (25%); Morbid Obesity; Likely TAURUS Interval history: Patient is seen today for: Atrial Flutter with RVR; HFrEF (25%); Morbid Obesity ; Likely TAURUS Seen and examined at bedside; 24hour events reviewed; nursing and respiratory care staff consulted; no adverse overnight events reported to me; sitting up in bed; remains on IV heparin; no bleeding; No N/V/F/C Objective Vital Signs - 12hr 09/23/17 09/23/17 09/23/17 00:51 01:01 01:04 Temperature Pulse Rate 85 80 Pulse Rate [ From Monitor] Respiratory 15 15 Rate Blood Pressure 128/73 123/79 O2 Sat by Pulse 100 100 99 Oximetry 09/23/17 09/23/17 09/23/17 01:06 01:11 01:21 Temperature Pulse Rate 91 H 86 86 Pulse Rate [ From Monitor] Respiratory 17 22 26 H Rate Blood Pressure 128/73 123/79 123/79 O2 Sat by Pulse 99 98 98 Oximetry 09/23/17 09/23/17 09/23/17 01:31 01:41 01:51 Temperature Pulse Rate 81 91 H 90 Pulse Rate [ From Monitor] Respiratory 18 24 15 Rate Blood Pressure 123/79 123/79 123/79 O2 Sat by Pulse 98 97 99 Oximetry 09/23/17 09/23/17 09/23/17 02:00 02:01 02:11 Temperature Pulse Rate 89 68 90 Pulse Rate [ From Monitor] Respiratory 14 16 Rate Blood Pressure 121/87 121/87 O2 Sat by Pulse 98 98 Oximetry 09/23/17 09/23/17 09/23/17 02:21 02:31 02:41 Temperature Pulse Rate 81 80 86 Pulse Rate [ From Monitor] Respiratory 18 13 19 Rate Blood Pressure 121/87 121/87 121/87 O2 Sat by Pulse 100 99 99 Oximetry 09/23/17 09/23/17 09/23/17 02:51 03:00 03:11 Temperature Pulse Rate 69 90 91 H Pulse Rate [ From Monitor] Respiratory 26 H 19 24 Rate Blood Pressure 121/87 132/79 132/79 O2 Sat by Pulse 99 96 99 Oximetry 09/23/17 09/23/17 09/23/17 03:21 03:31 03:41 Temperature Pulse Rate 91 H 91 H 68 Pulse Rate [ From Monitor] Respiratory 22 13 22 Rate Blood Pressure 132/79 132/79 132/79 O2 Sat by Pulse 98 100 98 Oximetry 09/23/17 09/23/17 09/23/17 03:51 04:00 04:01 Temperature 98.0 F Pulse Rate 86 91 H Pulse Rate [ 91 H From Monitor] Respiratory 24 17 16 Rate Blood Pressure 132/79 125/70 O2 Sat by Pulse 99 98 96 Oximetry 09/23/17 09/23/17 09/23/17 04:11 04:21 04:31 Temperature Pulse Rate 91 H 76 90 Pulse Rate [ From Monitor] Respiratory 22 20 20 Rate Blood Pressure 125/70 125/70 125/70 O2 Sat by Pulse 97 97 97 Oximetry 09/23/17 09/23/17 09/23/17 04:41 04:51 05:01 Temperature Pulse Rate 68 90 104 H Pulse Rate [ From Monitor] Respiratory 16 17 16 Rate Blood Pressure 125/70 125/70 134/79 O2 Sat by Pulse 99 100 97 Oximetry 09/23/17 09/23/17 09/23/17 05:08 09:40 12:23 Temperature Pulse Rate 93 H 78 Pulse Rate [ 78 From Monitor] Respiratory 16 Rate Blood Pressure 136/82 115/67 O2 Sat by Pulse 96 Oximetry Constitutional: alert, appears uncomfortable, other (morbidly obese) Eyes: non-icteric ENT: oropharynx moist, other (mallampatti IV oropharynx) Neck: supple, no lymphadenopathy, no JVD, other (large neck circumference) Effort: mildly labored Ascultation: Bilateral: diminished breath sounds, rales (posterior bases) Percussion: Bilateral: not dull Cardiovascular: irregular rhythm, murmur noted Gastrointestinal: normoactive bowel sounds, soft, non-tender, other (no palpable HSM) Integumentary: rash (stasis dermatitis) Extremities: no cyanosis, pulses normal, no ischemia or petechiae, edema Neurologic: normal mental status, non-focal exam, pupils equal and round, CN II- XII normal Psychiatric: mood appropriate, affect normal CBC and BMP: 09/26/17 04:46 09/26/17 04:46 ABG, PT/INR, D-dimer: PT/INR, D-dimer PT 15.6 Sec. (12.2-14.9) H 09/20/17 23:07 INR 1.17 (0.87-1.13) H 09/20/17 23:07 D-Dimer 490.77 ng/mlDDU (0-234) H 09/20/17 17:19 Abnormal lab findings: Abnormal Labs 09/20/17 09/20/17 09/20/17 17:19 17:19 17:19 RDW 15.4 H [place] % (Auto) 9.8 H PT INR D-Dimer 490.77 H Sodium Chloride BUN Glucose POC Glucose Total Bilirubin NT-Pro-B Natriuret Pep 1189 H Albumin Ur Specific [place] 09/20/17 09/20/17 09/20/17 17:19 21:30 23:07 RDW [place] % (Auto) PT 15.6 H INR 1.17 H D-Dimer Sodium Chloride BUN Glucose POC Glucose Total Bilirubin 2.00 H NT-Pro-B Natriuret Pep Albumin 3.8 L Ur Specific [place] 1.046 H 09/22/17 09/22/17 09/22/17 00:19 04:00 05:24 RDW [place] % (Auto) PT INR D-Dimer Sodium 134 L Chloride 94.5 L BUN 21 H Glucose 240 H POC Glucose 107 H 108 H Total Bilirubin NT-Pro-B Natriuret Pep Albumin 3.8 L Ur Specific [place] 09/22/17 09/23/17 17:52 11:09 RDW [place] % (Auto) PT INR D-Dimer Sodium Chloride BUN Glucose 101 H POC Glucose 121 H Total Bilirubin NT-Pro-B Natriuret Pep Albumin Ur Specific [place] Allied health notes reviewed: nursing
--- NOTE | 2017-09-23 13:08 | Progress Note ---
Assessment and Plan Assessment and plan: Patient is a 46 yo man with a history of untreated hypertension for at least a year and morbid obesity who presented initially to urgent care with sob and leg edema. He was found to have extremely high heart rate unresponsive to Adenosine and admit to Telemetry. Heart rate as high as 162, it appears he has aflutter with RVR -A. flutter with rvr: on iv heparin drip, was transitioned to oral rate control (off IV drips), -Heart failure; ef 20%; optimize meds, for cath on tuesday, on iv lasix -Untreated Hypertension: low salt diet, antihypertensives -Morbid obesity: need lifestyle modification -Grief reaction from father sudden in May; counseled, will refer to pyschiatry upon dc -Suspect TAURUS: has been counseled on getting outpatient sleep study as outpatient case dw cardiology History Interval history: sob is improved denies cp, palpiations or vomiting Hospitalist Physical - Physical exam Narrative exam: GEN: WDWN, morbid obese, bmi 51.7, NAD, Awake, Alert, Orientated x 3 HEENT: NCAT, EOMI, PERRL, OP Clear NECK: supple, no adenopathy, no thyromegaly, equivocal JVD/thick neck CVS/HEART: regular irregular, normal S1S2, pulses present bilaterally CHEST/LUNGS: diminished bilateral bs, Symmetrical chest expansion, GI/Abdomen: soft, NTND, good bowel sounds, no guarding or rebound /Bladder: no suprapubic tenderness, no CVA or paraspinal tenderness EXT/Skin: leg edema, no obvious rash MSK: FROM x 4 Neuro: CN 2-12 grossly intact, no new focal deficits Psych: calm - Constitutional Vitals: Temp Pulse Resp BP Pulse Ox 98.0 F 78 16 115/67 96 09/23/17 04:00 09/23/17 12:23 09/23/17 05:08 09/23/17 12:23 09/23/17 05:08 General appearance: Present: no acute distress Results - Labs CBC & Chem 7: 09/24/17 05:32 09/23/17 11:09 Labs: Laboratory Last Values WBC 8.2 K/mm3 (4.5-11.0) 09/22/17 04:00 RBC 4.81 M/mm3 (3.65-5.03) 09/22/17 04:00 Hgb 14.8 gm/dl (11.8-15.2) 09/22/17 04:00 Hct 44.2 % (35.5-45.6) 09/22/17 04:00 MCV 92 fl (84-94) 09/22/17 04:00 MCH 31 pg (28-32) 09/22/17 04:00 MCHC 33 % (32-34) 09/22/17 04:00 RDW 15.2 % (13.2-15.2) 09/22/17 04:00 Plt Count 211 K/mm3 (140-440) 09/22/17 04:00 Lymph % (Auto) 26.3 % (13.4-35.0) 09/20/17 17:19 [place] % (Auto) 9.8 % (0.0-7.3) H 09/20/17 17:19 Eos % (Auto) 0.3 % (0.0-4.3) 09/20/17 17:19 Baso % (Auto) 0.3 % (0.0-1.8) 09/20/17 17:19 Lymph # 1.9 K/mm3 (1.2-5.4) 09/20/17 17:19 [place] # 0.7 K/mm3 (0.0-0.8) 09/20/17 17:19 Eos # 0.0 K/mm3 (0.0-0.4) 09/20/17 17:19 Baso # 0.0 K/mm3 (0.0-0.1) 09/20/17 17:19 Seg Neutrophils % 63.3 % (40.0-70.0) 09/20/17 17:19 Seg Neutrophils # 4.5 K/mm3 (1.8-7.7) 09/20/17 17:19 PT 15.6 Sec. (12.2-14.9) H 09/20/17 23:07 INR 1.17 (0.87-1.13) H 09/20/17 23:07 APTT 28.8 Sec. (24.2-36.6) 09/20/17 23:07 D-Dimer 490.77 ng/mlDDU (0-234) H 09/20/17 17:19 Heparin Anti-Xa Level 0.36 U.I./ml (0.3-0.7) 09/23/17 07:45 Sodium 137 mmol/L (137-145) 09/23/17 11:09 Potassium 3.7 mmol/L (3.6-5.0) 09/23/17 11:09 Chloride 99.1 mmol/L (98-107) 09/23/17 11:09 Carbon Dioxide 25 mmol/L (22-30) 09/23/17 11:09 Anion Gap 17 mmol/L 09/23/17 11:09 BUN 20 mg/dL (9-20) 09/23/17 11:09 Creatinine 1.2 mg/dL (0.8-1.5) 09/23/17 11:09 Estimated GFR > 60 ml/min 09/23/17 11:09 BUN/Creatinine Ratio 17 % 09/23/17 11:09 Glucose 101 mg/dL (75-100) H 09/23/17 11:09 POC Glucose 121 (70-105) H 09/22/17 17:52 Calcium 8.9 mg/dL (8.4-10.2) 09/23/17 11:09 Magnesium 1.90 mg/dL (1.7-2.3) 09/20/17 17:19 Total Bilirubin 1.10 mg/dL (0.1-1.2) 09/22/17 04:00 AST 39 units/L (5-40) 09/22/17 04:00 ALT 51 units/L (7-56) 09/22/17 04:00 Alkaline Phosphatase 76 units/L (35-129) 09/22/17 04:00 Total Creatine Kinase 84 units/L (55-170) 09/21/17 06:18 CK-MB (CK-2) 2.4 ng/mL (0.0-4.0) 09/21/17 06:18 CK-MB (CK-2) Rel Index 2.8 (0-4) 09/21/17 06:18 Troponin T < 0.010 ng/mL (0.00-0.029) 09/21/17 06:18 NT-Pro-B Natriuret Pep 1189 pg/mL (0-450) H 09/20/17 17:19 Total Protein 7.2 g/dL (6.3-8.2) 09/22/17 04:00 Albumin 3.8 g/dL (3.9-5) L 09/22/17 04:00 Albumin/Globulin Ratio 1.1 % 09/22/17 04:00 Triglycerides 111 mg/dL (2-149) 09/22/17 04:00 Cholesterol 159 mg/dL (50-199) 09/22/17 04:00 LDL Cholesterol Direct 97 mg/dL (50-130) 09/22/17 04:00 HDL Cholesterol 41 mg/dL (40-59) 09/22/17 04:00 Cholesterol/HDL Ratio 3.87 % 09/22/17 04:00 TSH 0.971 mlU/mL (0.270-4.200) 09/21/17 11:15 Free T4 1.32 ng/dL (0.76-1.46) 09/21/17 11:15 Urine Color Yellow (Yellow) 09/20/17 21:30 Urine Turbidity Clear (Clear) 09/20/17 21:30 Urine pH 5.0 (5.0-7.0) 09/20/17 21:30 Ur Specific [place] 1.046 (1.003-1.030) H 09/20/17 21:30 Urine Protein 100 mg/dl mg/dL (Negative) 09/20/17 21:30 Urine Glucose (UA) Neg mg/dL (Negative) 09/20/17 21:30 Urine Ketones Tr mg/dL (Negative) 09/20/17 21:30 Urine Blood Neg (Negative) 09/20/17 21:30 Urine Nitrite Neg (Negative) 09/20/17 21:30 Urine Bilirubin Neg (Negative) 09/20/17 21:30 Urine Urobilinogen 2.0 mg/dL (<2.0) 09/20/17 21:30 Ur Leukocyte Esterase Neg (Negative) 09/20/17 21:30 Urine WBC (Auto) 1.0 /HPF (0.0-6.0) 09/20/17 21:30 Urine RBC (Auto) 1.0 /HPF (0.0-6.0) 09/20/17 21:30 U Epithel Cells (Auto) < 1.0 /HPF (0-13.0) 09/20/17 21:30 Urine Mucus 1+ /HPF 09/20/17 21:30 Urine Opiates Screen Presumptive negative 09/20/17 21:30 Urine Methadone Screen Presumptive negative 09/20/17 21:30 Ur Barbiturates Screen Presumptive negative 09/20/17 21:30 Ur Phencyclidine Scrn Presumptive negative 09/20/17 21:30 Ur Amphetamines Screen Presumptive negative 09/20/17 21:30 U Benzodiazepines Scrn Presumptive negative 09/20/17 21:30 Urine Cocaine Screen Presumptive negative 09/20/17 21:30 U Marijuana (THC) Screen Presumptive negative 09/20/17 21:30 Drugs of Abuse Note Disclamer 09/20/17 21:30
[2017-09-24] MEDS: LASIX IV SCH ×2 (05:32→18:37)
[2017-09-24] MEDS: HEPARIN/ 0.45% NACL-25,000 UNIT/500 ML 25,000 UNIT/500 ML BAG IV SCH (05:33)
[2017-09-24 06:53] LABS: Hematocrit 48.7 % (35.5-45.6); Hemoglobin 15.9 gm/dl (11.8-15.2)
[2017-09-24] MEDS: LOPRESSOR PO SCH ×3 (08:44→21:57)
--- NOTE | 2017-09-24 09:44 | Progress Note ---
Assessment and Plan Atrial fibrillation with RVR Cardiomyopathy based on radiographic findings, Echo pending HTN-untreated -Severe obesity Probably sleep apnea Probable Pulmonary HTN -Continue with amiodarone for rate control -Anticoagulation -Get thyroid function studies -Sleep study as out patient - Life style modifications and weight loss -Monitor hemodynamics Care plan disicussed with the RN, patient and his who was at the bedside Subjective Date of service: 09/24/17 Principal diagnosis: Atrial Flutter with RVR; HFrEF (25%); Morbid Obesity; Likely TAURUS Objective - Exam Narrative Exam: GEN: WDWN, morbid obese, bmi 51.7, NAD, Awake, Alert, Orientated x 3 HEENT: NCAT, EOMI, PERRL, OP Clear NECK: supple, no adenopathy, no thyromegaly, equivocal JVD/thick neck CVS/HEART: regular irregular, normal S1S2, pulses present bilaterally CHEST/LUNGS: diminished bilateral bs, Symmetrical chest expansion, adequate air entry bilaterally GI/Abdomen: soft, NTND, good bowel sounds, no guarding or rebound /Bladder: no suprapubic tenderness, no CVA or paraspinal tenderness EXT/Skin: leg edema, no obvious rash MSK: FROM x 4 Neuro: CN 2-12 grossly intact, no new focal deficits Psych: calm Vital Signs - 12hr 09/23/17 09/23/17 09/24/17 22:00 22:20 00:19 Temperature Pulse Rate 69 69 Respiratory 20 Rate Blood Pressure 115/87 112/87 O2 Sat by Pulse 99 96 Oximetry 09/24/17 09/24/17 09/24/17 00:20 05:02 07:50 Temperature 98.6 F Pulse Rate 69 66 60 Respiratory 22 20 20 Rate Blood Pressure 107/79 100/60 O2 Sat by Pulse 99 96 98 Oximetry 09/24/17 08:44 Temperature Pulse Rate Respiratory Rate Blood Pressure 100/60 O2 Sat by Pulse Oximetry Constitutional: alert, appears uncomfortable, other (morbidly obese) Eyes: non-icteric ENT: oropharynx moist, other (mallampatti IV oropharynx) Neck: supple, no lymphadenopathy, no JVD, other (large neck circumference) Effort: mildly labored Ascultation: Bilateral: diminished breath sounds, rales (posterior bases) Percussion: Bilateral: not dull Cardiovascular: irregular rhythm, murmur noted Gastrointestinal: normoactive bowel sounds, soft, non-tender, other (no palpable HSM) Integumentary: rash (stasis dermatitis) Extremities: no cyanosis, pulses normal, no ischemia or petechiae, edema Neurologic: normal mental status, non-focal exam, pupils equal and round, CN II- XII normal Psychiatric: mood appropriate, affect normal CBC and BMP: 09/24/17 05:32 09/23/17 11:09 ABG, PT/INR, D-dimer: ABG POC ABG pH 7.415 (7.35-7.45) 09/23/17 15:00 POC ABG pCO2 36.7 (35-45) 09/23/17 15:00 POC ABG pO2 88 (80-105) 09/23/17 15:00 POC ABG HCO3 23.5 09/23/17 15:00 POC ABG Total CO2 25 09/23/17 15:00 POC ABG O2 Sat 97 09/23/17 15:00 PT/INR, D-dimer PT 15.6 Sec. (12.2-14.9) H 09/20/17 23:07 INR 1.17 (0.87-1.13) H 09/20/17 23:07 D-Dimer 490.77 ng/mlDDU (0-234) H 09/20/17 17:19 Abnormal lab findings: Abnormal Labs 09/20/17 09/20/17 09/20/17 17:19 17:19 17:19 Hgb Hct RDW 15.4 H [place] % (Auto) 9.8 H PT INR D-Dimer 490.77 H Heparin Anti-Xa Level Sodium Chloride BUN Glucose POC Glucose Total Bilirubin NT-Pro-B Natriuret Pep 1189 H Albumin Ur Specific [place] 09/20/17 09/20/1718 17:19 21:30 23:07 Hgb Hct RDW [place] % (Auto) PT 15.6 H INR 1.17 H D-Dimer Heparin Anti-Xa Level Sodium Chloride BUN Glucose POC Glucose Total Bilirubin 2.00 H NT-Pro-B Natriuret Pep Albumin 3.8 L Ur Specific [place] 1.046 H 09/22/17 09/22/17 09/22/17 00:19 04:00 05:24 Hgb Hct RDW [place] % (Auto) PT INR D-Dimer Heparin Anti-Xa Level Sodium 134 L Chloride 94.5 L BUN 21 H Glucose 240 H POC Glucose 107 H 108 H Total Bilirubin NT-Pro-B Natriuret Pep Albumin 3.8 L Ur Specific [place] 09/22/17 09/23/17 09/23/17 17:52 11:09 15:52 Hgb Hct RDW [place] % (Auto) PT INR D-Dimer Heparin Anti-Xa Level Sodium Chloride BUN Glucose 101 H POC Glucose 121 H 108 H Total Bilirubin NT-Pro-B Natriuret Pep Albumin Ur Specific [place] 09/24/17 09/24/17 05:32 07:48 Hgb 15.9 H Hct 48.7 H RDW [place] % (Auto) PT INR D-Dimer Heparin Anti-Xa Level 0.20 L Sodium Chloride BUN Glucose POC Glucose Total Bilirubin NT-Pro-B Natriuret Pep Albumin Ur Specific [place] Allied health notes reviewed: nursing
--- NOTE | 2017-09-24 10:48 | Progress Note ---
Assessment and Plan acute systolic heart failure acute respiratory failure aflutter rvr now controlled morbid obesity hypercougable state htn sleep apena corey rec; cont current meds, cardiac cath in am, change to po lasix in am , discuss with pt in detail and pcp Subjective Date of service: 09/24/17 Principal diagnosis: Atrial Flutter with RVR; HFrEF (25%); Morbid Obesity; Likely COREY Interval history: pt is feeling better no palpations Objective Vital Signs Temp Pulse Resp BP Pulse Ox 09/24/17 08:44 100/60 09/24/17 07:50 98.6 F 60 20 100/60 98 09/24/17 05:02 66 20 107/79 96 09/24/17 00:20 69 22 99 09/24/17 00:19 69 20 112/87 96 09/23/17 22:20 69 115/87 09/23/17 22:00 99 09/23/17 20:40 98.7 F 68 20 114/77 96 09/23/17 18:50 68 18 108/59 99 09/23/17 18:40 108/59 99 09/23/17 18:30 68 19 108/59 97 09/23/17 18:20 68 15 108/59 98 09/23/17 18:10 69 15 108/59 96 09/23/17 18:00 81 16 108/59 100 09/23/17 17:50 69 19 101/52 98 09/23/17 17:40 91 H 16 101/52 100 09/23/17 17:30 68 19 101/52 97 09/23/17 17:20 86 24 101/52 97 09/23/17 17:10 91 H 23 101/52 97 09/23/17 17:00 87 19 101/52 67 L 09/23/17 16:50 91 H 23 113/75 97 09/23/17 16:40 97 H 12 113/75 97 09/23/17 16:30 91 H 21 113/75 97 09/23/17 16:20 91 H 15 113/75 98 09/23/17 16:10 91 H 14 113/75 97 09/23/17 16:00 98.1 F 92 H 12 113/75 97 09/23/17 15:50 91 H 14 113/68 99 09/23/17 15:45 91 H 113/68 0418 15:40 91 H 11 L 94/46 96 18 15:30 91 H 13 94/46 96 18 15:20 98 H 21 94/46 99 09/23/17 15:10 113 H 20 104/74 98 09/23/17 15:00 105 H 26 H 104/74 98 09/23/17 14:50 105 H 28 H 104/74 95 09/23/17 14:40 91 H 11 L 98 09/23/17 14:30 91 H 12 97 09/23/17 14:20 91 H 17 104/74 96 09/23/17 14:11 81 12 104/74 98 09/23/17 14:01 86 17 104/74 96 09/23/17 14:00 92 H 09/23/17 13:51 91 H 15 106/67 97 09/23/17 13:41 73 13 106/67 98 09/23/17 13:31 91 H 15 106/67 98 09/23/17 13:21 91 H 15 106/67 95 09/23/17 13:11 87 16 106/67 98 09/23/17 13:01 74 13 115/67 100 09/23/17 12:51 87 10 L 115/67 98 09/23/17 12:41 69 16 115/67 96 09/23/17 12:31 77 10 L 115/67 96 09/23/17 12:23 78 115/67 09/23/17 12:21 78 11 L 115/67 97 09/23/17 12:11 82 13 115/67 95 09/23/17 12:01 69 16 115/67 100 09/23/17 12:00 98.3 F 09/23/17 11:51 86 12 124/76 96 09/23/17 11:41 92 H 25 H 124/76 98 09/23/17 11:31 91 H 22 124/76 97 09/23/17 11:21 92 H 21 124/76 97 09/23/18 11:11 92 H 21 124/76 95 18 11:01 24 124/76 96 09/23/17 10:51 17 126/64 97 - Physical Examination General: No Apparent Distress HEENT: Positive: PERRL, Normocephaly, Mucus Membranes Moist Neck: Positive: neck supple, trachea midline Cardiac: Positive: Irregularly Regular Lungs: Positive: clear to auscultation Neuro: Positive: Grossly Intact, Cranial Nerve 2-12 Intact Abdomen: Positive: Soft. Negative: Tender Skin: Positive: Clear. Negative: Rash, Wound Musculoskeletal: No Pain, Normal Range of Motion Extremities: Absent: edema - Labs and Meds CBC 09/24/17 Range/Units 05:32 Hgb 15.9 H (11.8-15.2) gm/dl Hct 48.7 H (35.5-45.6) % Plt Count 233 (140-440) K/mm3 Comprehensive Metabolic Panel 09/23/17 Range/Units 11:09 Sodium 137 (137-145) mmol/L Potassium 3.7 (3.6-5.0) mmol/L Chloride 99.1 (98-107) mmol/L Carbon Dioxide 25 (22-30) mmol/L BUN 20 (9-20) mg/dL Creatinine 1.2 (0.8-1.5) mg/dL Glucose 101 H (75-100) mg/dL Calcium 8.9 (8.4-10.2) mg/dL - Imaging and Cardiology EKG: report reviewed, image reviewed Echo: report reviewed (EF 20-25%, mild LVH, RV mild to mod dilated, RV systolic function severely reduced, RA severely dilated, ) - Telemetry EKG Rhythm: Atrial Flutter (at 90's) - Allied health notes Allied health notes reviewed: nursing
[2017-09-24] MEDS: CORDARONE PO SCH ×2 (11:40→21:54)
[2017-09-24] MEDS: PEPCID PO SCH ×2 (11:40→21:54)
[2017-09-24] MEDS: ZESTRIL PO SCH (11:40)
--- NOTE | 2017-09-24 11:54 | Progress Note ---
Assessment and Plan Assessment and plan: Patient is a 46 yo man with a history of untreated hypertension for at least a year and morbid obesity who presented initially to urgent care with sob and leg edema. He was found to have extremely high heart rate unresponsive to Adenosine and admit to Telemetry. Heart rate as high as 162, it appears he has aflutter with RVR -A. flutter with rvr: on iv heparin drip, was transitioned to oral rate control (off IV drips), -Heart failure; ef 20%; optimize meds, for cath on tuesday, on iv lasix -Untreated Hypertension: low salt diet, antihypertensives -Morbid obesity: need lifestyle modification -Grief reaction from father sudden in May; counseled, will refer to pyschiatry upon dc -Suspect TAURUS: has been counseled on getting outpatient sleep study as outpatient case dw cardiology History Interval history: sob is improved denies cp, palpiations or vomiting Hospitalist Physical - Physical exam Narrative exam: GEN: WDWN, morbid obese, bmi 51.7, NAD, Awake, Alert, Orientated x 3 HEENT: NCAT, EOMI, PERRL, OP Clear NECK: supple, no adenopathy, no thyromegaly, equivocal JVD/thick neck CVS/HEART: regular irregular, normal S1S2, pulses present bilaterally CHEST/LUNGS: diminished bilateral bs, Symmetrical chest expansion, GI/Abdomen: soft, NTND, good bowel sounds, no guarding or rebound /Bladder: no suprapubic tenderness, no CVA or paraspinal tenderness EXT/Skin: leg edema, no obvious rash MSK: FROM x 4 Neuro: CN 2-12 grossly intact, no new focal deficits Psych: calm - Constitutional Vitals: Temp Pulse Resp BP Pulse Ox 98.6 F 60 20 100/60 98 09/24/17 07:50 09/24/17 07:50 09/24/17 07:50 09/24/17 08:44 09/24/17 07:50 General appearance: Present: no acute distress Results - Labs CBC & Chem 7: 09/24/17 05:32 09/23/17 11:09 Labs: Laboratory Last Values WBC 8.2 K/mm3 (4.5-11.0) 09/22/17 04:00 RBC 4.81 M/mm3 (3.65-5.03) 09/22/17 04:00 Hgb 15.9 gm/dl (11.8-15.2) H 09/24/17 05:32 Hct 48.7 % (35.5-45.6) H 09/24/17 05:32 MCV 92 fl (84-94) 09/22/17 04:00 MCH 31 pg (28-32) 09/22/17 04:00 MCHC 33 % (32-34) 09/22/17 04:00 RDW 15.2 % (13.2-15.2) 09/22/17 04:00 Plt Count 233 K/mm3 (140-440) 09/24/17 05:32 Lymph % (Auto) 26.3 % (13.4-35.0) 09/20/17 17:19 [place] % (Auto) 9.8 % (0.0-7.3) H 09/20/17 17:19 Eos % (Auto) 0.3 % (0.0-4.3) 09/20/17 17:19 Baso % (Auto) 0.3 % (0.0-1.8) 09/20/17 17:19 Lymph # 1.9 K/mm3 (1.2-5.4) 09/20/17 17:19 [place] # 0.7 K/mm3 (0.0-0.8) 09/20/17 17:19 Eos # 0.0 K/mm3 (0.0-0.4) 09/20/17 17:19 Baso # 0.0 K/mm3 (0.0-0.1) 09/20/17 17:19 Seg Neutrophils % 63.3 % (40.0-70.0) 09/20/17 17:19 Seg Neutrophils # 4.5 K/mm3 (1.8-7.7) 09/20/17 17:19 PT 15.6 Sec. (12.2-14.9) H 09/20/17 23:07 INR 1.17 (0.87-1.13) H 09/20/17 23:07 APTT 28.8 Sec. (24.2-36.6) 09/20/17 23:07 D-Dimer 490.77 ng/mlDDU (0-234) H 04/17/18 17:19 Heparin Anti-Xa Level 0.20 U.I./ml (0.3-0.7) L 09/24/17 07:48 POC ABG pH 7.415 (7.35-7.45) 09/23/17 15:00 POC ABG pCO2 36.7 (35-45) 09/23/17 15:00 POC ABG pO2 88 (80-105) 09/23/17 15:00 POC ABG HCO3 23.5 09/23/17 15:00 POC ABG Total CO2 25 09/23/17 15:00 POC ABG O2 Sat 97 09/23/17 15:00 POC ABG Base Excess -1 09/23/17 15:00 FiO2 21 % 09/23/17 15:00 Sodium 137 mmol/L (137-145) 09/23/17 11:09 Potassium 3.7 mmol/L (3.6-5.0) 09/23/17 11:09 Chloride 99.1 mmol/L (98-107) 09/23/17 11:09 Carbon Dioxide 25 mmol/L (22-30) 09/23/17 11:09 Anion Gap 17 mmol/L 09/23/17 11:09 BUN 20 mg/dL (9-20) 09/23/17 11:09 Creatinine 1.2 mg/dL (0.8-1.5) 09/23/17 11:09 Estimated GFR > 60 ml/min 09/23/17 11:09 BUN/Creatinine Ratio 17 % 09/23/17 11:09 Glucose 101 mg/dL (75-100) H 09/23/17 11:09 POC Glucose 108 (70-105) H 09/23/17 15:52 Calcium 8.9 mg/dL (8.4-10.2) 09/23/17 11:09 Magnesium 1.90 mg/dL (1.7-2.3) 09/20/17 17:19 Total Bilirubin 1.10 mg/dL (0.1-1.2) 09/22/17 04:00 AST 39 units/L (5-40) 09/22/17 04:00 ALT 51 units/L (7-56) 09/22/17 04:00 Alkaline Phosphatase 76 units/L (35-129) 09/22/17 04:00 Total Creatine Kinase 84 units/L (55-170) 09/21/17 06:18 CK-MB (CK-2) 2.4 ng/mL (0.0-4.0) 09/21/17 06:18 CK-MB (CK-2) Rel Index 2.8 (0-4) 09/21/17 06:18 Troponin T < 0.010 ng/mL (0.00-0.029) 09/21/17 06:18 NT-Pro-B Natriuret Pep 1189 pg/mL (0-450) H 09/20/17 17:19 Total Protein 7.2 g/dL (6.3-8.2) 09/22/17 04:00 Albumin 3.8 g/dL (3.9-5) L 09/22/17 04:00 Albumin/Globulin Ratio 1.1 % 09/22/17 04:00 Triglycerides 111 mg/dL (2-149) 09/22/17 04:00 Cholesterol 159 mg/dL (50-199) 09/22/17 04:00 LDL Cholesterol Direct 97 mg/dL (50-130) 09/22/17 04:00 HDL Cholesterol 41 mg/dL (40-59) 09/22/17 04:00 Cholesterol/HDL Ratio 3.87 % 09/22/17 04:00 TSH 0.971 mlU/mL (0.270-4.200) 09/21/17 11:15 Free T4 1.32 ng/dL (0.76-1.46) 09/21/17 11:15 Urine Color Yellow (Yellow) 09/20/17 21:30 Urine Turbidity Clear (Clear) 09/20/17 21:30 Urine pH 5.0 (5.0-7.0) 09/20/17 21:30 Ur Specific [place] 1.046 (1.003-1.030) H 09/20/17 21:30 Urine Protein 100 mg/dl mg/dL (Negative) 09/20/17 21:30 Urine Glucose (UA) Neg mg/dL (Negative) 09/20/17 21:30 Urine Ketones Tr mg/dL (Negative) 09/20/17 21:30 Urine Blood Neg (Negative) 09/20/17 21:30 Urine Nitrite Neg (Negative) 09/20/17 21:30 Urine Bilirubin Neg (Negative) 09/20/17 21:30 Urine Urobilinogen 2.0 mg/dL (<2.0) 09/20/17 21:30 Ur Leukocyte Esterase Neg (Negative) 09/20/17 21:30 Urine WBC (Auto) 1.0 /HPF (0.0-6.0) 09/20/17 21:30 Urine RBC (Auto) 1.0 /HPF (0.0-6.0) 09/20/17 21:30 U Epithel Cells (Auto) < 1.0 /HPF (0-13.0) 09/20/17 21:30 Urine Mucus 1+ /HPF 09/20/17 21:30 Urine Opiates Screen Presumptive negative 09/20/17 21:30 Urine Methadone Screen Presumptive negative 09/20/17 21:30 Ur Barbiturates Screen Presumptive negative 09/20/17 21:30 Ur Phencyclidine Scrn Presumptive negative 09/20/17 21:30 Ur Amphetamines Screen Presumptive negative 09/20/17 21:30 U Benzodiazepines Scrn Presumptive negative 09/20/17 21:30 Urine Cocaine Screen Presumptive negative 09/20/17 21:30 U Marijuana (THC) Screen Presumptive negative 09/20/17 21:30 Drugs of Abuse Note Disclamer 09/20/17 21:30
[2017-09-25] MEDS: LASIX IV SCH (05:32)
[2017-09-25] MEDS: HEPARIN/ 0.45% NACL-25,000 UNIT/500 ML 25,000 UNIT/500 ML BAG IV SCH ×2 (05:37→22:51)
--- NOTE | 2017-09-25 07:56 | Progress Note ---
Assessment and Plan Atrial fibrillation with RVR Cardiomyopathy based on radiographic findings, Echo pending HTN-untreated -Severe obesity Probably sleep apnea Probable Pulmonary HTN -Continue with amiodarone for rate control -Anticoagulation -Get thyroid function studies -Sleep study as out patient - Life style modifications and weight loss -Monitor hemodynamics Care plan disicussed with the RN, patient and his who was at the bedside Subjective Date of service: 09/25/17 Principal diagnosis: Atrial Flutter with RVR; HFrEF (25%); Morbid Obesity; Likely TAURUS Interval history: Seen and examined. Vitals, labs,medications, chart reviewed. Plan for cardiac catheterization in view of depressed EF No acute overnight events. Denied any fevers or chills, no chest pain, no shortness of breath, no fevers or chills Objective - Exam Narrative Exam: GEN: WDWN, morbid obese, bmi 51.7, NAD, Awake, Alert, Orientated x 3 HEENT: NCAT, EOMI, PERRL, OP Clear NECK: supple, no adenopathy, no thyromegaly, equivocal JVD/thick neck CVS/HEART: regular irregular, normal S1S2, pulses present bilaterally CHEST/LUNGS: diminished bilateral bs, Symmetrical chest expansion, GI/Abdomen: soft, NTND, good bowel sounds, no guarding or rebound /Bladder: no suprapubic tenderness, no CVA or paraspinal tenderness EXT/Skin: leg edema, no obvious rash MSK: FROM x 4 Neuro: CN 2-12 grossly intact, no new focal deficits Psych: calm Vital Signs - 12hr 09/24/17 09/24/17 09/24/17 20:21 21:06 21:57 Temperature 97.7 F Pulse Rate 50 L 70 Respiratory 20 Rate Blood Pressure 135/75 135/75 O2 Sat by Pulse 98 96 Oximetry 09/25/17 09/25/17 00:17 04:47 Temperature 98.4 F 97.8 F Pulse Rate 70 67 Respiratory 20 20 Rate Blood Pressure 102/70 104/71 O2 Sat by Pulse 99 96 Oximetry Constitutional: alert, appears uncomfortable, other (morbidly obese) Eyes: non-icteric ENT: oropharynx moist, other (mallampatti IV oropharynx) Neck: supple, no lymphadenopathy, no JVD, other (large neck circumference) Effort: mildly labored Ascultation: Bilateral: diminished breath sounds, rales (posterior bases) Percussion: Bilateral: not dull Cardiovascular: irregular rhythm, murmur noted Gastrointestinal: normoactive bowel sounds, soft, non-tender, other (no palpable HSM) Integumentary: rash (stasis dermatitis) Extremities: no cyanosis, pulses normal, no ischemia or petechiae, edema Neurologic: normal mental status, non-focal exam, pupils equal and round, CN II- XII normal Psychiatric: mood appropriate, affect normal CBC and BMP: 09/24/17 05:32 09/23/17 11:09 ABG, PT/INR, D-dimer: ABG POC ABG pH 7.415 (7.35-7.45) 09/23/17 15:00 POC ABG pCO2 36.7 (35-45) 09/23/17 15:00 POC ABG pO2 88 (80-105) 09/23/17 15:00 POC ABG HCO3 23.5 09/23/17 15:00 POC ABG Total CO2 25 09/23/17 15:00 POC ABG O2 Sat 97 09/23/17 15:00 PT/INR, D-dimer PT 15.6 Sec. (12.2-14.9) H 09/20/17 23:07 INR 1.17 (0.87-1.13) H 09/20/17 23:07 D-Dimer 490.77 ng/mlDDU (0-234) H 09/20/17 17:19 Abnormal lab findings: Abnormal Labs 09/20/17 09/20/17 09/20/17 17:19 17:19 17:19 Hgb Hct RDW 15.4 H [place] % (Auto) 9.8 H PT INR D-Dimer 490.77 H Heparin Anti-Xa Level Sodium Chloride BUN Glucose POC Glucose Total Bilirubin NT-Pro-B Natriuret Pep 1189 H Albumin Ur Specific [place] 09/20/17 09/20/17 09/20/17 17:19 21:30 23:07 Hgb Hct RDW [place] % (Auto) PT 15.6 H INR 1.17 H D-Dimer Heparin Anti-Xa Level Sodium Chloride BUN Glucose POC Glucose Total Bilirubin 2.00 H NT-Pro-B Natriuret Pep Albumin 3.8 L Ur Specific [place] 1.046 H 04/09/22/17 09/22/17 00:19 04:00 05:24 Hgb Hct RDW [place] % (Auto) PT INR D-Dimer Heparin Anti-Xa Level Sodium 134 L Chloride 94.5 L BUN 21 H Glucose 240 H POC Glucose 107 H 108 H Total Bilirubin NT-Pro-B Natriuret Pep Albumin 3.8 L Ur Specific [place] 09/22/17 09/23/17 09/23/17 17:52 11:09 15:52 Hgb Hct RDW [place] % (Auto) PT INR D-Dimer Heparin Anti-Xa Level Sodium Chloride BUN Glucose 101 H POC Glucose 121 H 108 H Total Bilirubin NT-Pro-B Natriuret Pep Albumin Ur Specific [place] 09/24/17 09/24/17 05:32 07:48 Hgb 15.9 H Hct 48.7 H RDW [place] % (Auto) PT INR D-Dimer Heparin Anti-Xa Level 0.20 L Sodium Chloride BUN Glucose POC Glucose Total Bilirubin NT-Pro-B Natriuret Pep Albumin Ur Specific [place] Allied health notes reviewed: nursing
[2017-09-25] MEDS: LOPRESSOR PO SCH ×2 (08:00→22:47)
[2017-09-25] MEDS: ZESTRIL PO SCH (10:14)
[2017-09-25] MEDS: CORDARONE PO SCH (10:29)
--- NOTE | 2017-09-25 11:25 | Progress Note ---
Assessment and Plan acute systolic heart failure acute respiratory failure aflutter rvr now controlled morbid obesity hypercougable state htn sleep apena corey rec; decrease amio to 200mg daily, as heart rate is better, lopressor 100mg bid , cont lisinopril and change to po lasix 40mg daily and aldactone 25 mg daily and check bmp today and cardiac cath in am hold heparin prior to cath. discuss with pt in detail about the procedure. Subjective Date of service: 09/25/17 Principal diagnosis: Atrial Flutter with RVR; HFrEF (25%); Morbid Obesity; Likely COREY Interval history: pt able to ly flat and no sob Objective Vital Signs Temp Pulse Pulse Resp BP Pulse Ox 09/25/17 07:35 97.6 F 41 L 20 97/53 95 09/25/17 04:47 97.8 F 67 20 104/71 96 09/25/17 00:17 98.4 F 70 20 102/70 99 09/24/17 21:57 70 135/75 09/24/17 21:06 96 09/24/17 20:21 97.7 F 50 L 20 135/75 98 09/24/17 16:00 98.4 F 63 20 110/72 97 09/24/17 14:14 101 H 09/24/17 14:10 101 H 98 09/24/17 14:00 101 H 09/24/17 12:09 97.9 F 44 L 20 120/71 99 - Physical Examination General: No Apparent Distress HEENT: Positive: PERRL, Normocephaly, Mucus Membranes Moist Neck: Positive: neck supple, trachea midline Cardiac: Positive: Irregularly Regular Lungs: Positive: clear to auscultation Neuro: Positive: Grossly Intact, Cranial Nerve 2-12 Intact Abdomen: Positive: Soft. Negative: Tender Skin: Positive: Clear. Negative: Rash, Wound Musculoskeletal: No Pain, Normal Range of Motion Extremities: Absent: edema - Imaging and Cardiology EKG: report reviewed, image reviewed Echo: report reviewed (EF 20-25%, mild LVH, RV mild to mod dilated, RV systolic function severely reduced, RA severely dilated, ) - Telemetry EKG Rhythm: Atrial Flutter (rate 70's aflutter) - Allied health notes Allied health notes reviewed: nursing
[2017-09-25] MEDS: ALDACTONE PO SCH (11:30)
[2017-09-25] MEDS: PEPCID PO SCH ×2 (12:30→22:47)
[2017-09-25 16:53] LABS: Basophils % (Auto) 0.3 % (0.0-1.8); Eosinophils % (Auto) 0.6 % (0.0-4.3); Hematocrit 45.3 % (35.5-45.6); Hemoglobin 14.4 gm/dl (11.8-15.2); Lymphocytes % (Auto) 31.5 % (13.4-35.0); Mean Corpuscular HGB Conc 32 % (32-34); Mean Corpuscular Hemoglobin 29 pg (28-32); Mean Corpuscular Volume 93 fl (84-94); Monocytes # (Auto) 0.6 K/mm3 (0.0-0.8); Monocytes % (Auto) 9.8 % (0.0-7.3); Platelet Count 221 K/mm3 (140-440); Red Cell Distribution Width 15.5 % (13.2-15.2)
[2017-09-25 17:15] LABS: BUN/Creatinine Ratio 18; Blood Urea Nitrogen 21 mg/dL (9-20); Calcium 8.8 mg/dL (8.4-10.2); Hemolysis Index 17
[2017-09-25] MEDS ORDERED: LOPRESSOR PO SCH (22:00)
--- NOTE | 2017-09-26 02:34 | Progress Note ---
Assessment and Plan Assessment and plan: Patient is a 46 yo man with a history of untreated hypertension for at least a year and morbid obesity who presented initially to urgent care with sob and leg edema.pw with svt and RVR as high as 160s, LE edema and sob -A. flutter with rvr: on iv heparin drip, was transitioned to oral rate control (off IV drips), -Heart failure; ef 20%; optimize meds, for cath on tuesday, on iv lasix -Untreated Hypertension: low salt diet, antihypertensives -Morbid obesity: need lifestyle modification -Grief reaction from father sudden in May; counseled, will refer to pyschiatry upon dc -Suspect TAURUS: has been counseled on getting outpatient sleep study as outpatient case dw cardiology History Interval history: sob is improved denies cp, palpiations or vomiting orthopnea and parks is improved Hospitalist Physical - Physical exam Narrative exam: GEN: WDWN, morbid obese, bmi 51.7, NAD, Awake, Alert, Orientated x 3 HEENT: NCAT, EOMI, PERRL, OP Clear NECK: supple, no adenopathy, no thyromegaly, equivocal JVD/thick neck CVS/HEART: regular irregular, normal S1S2, pulses present bilaterally CHEST/LUNGS: diminished bilateral bs, Symmetrical chest expansion, GI/Abdomen: soft, NTND, good bowel sounds, no guarding or rebound /Bladder: no suprapubic tenderness, no CVA or paraspinal tenderness EXT/Skin: leg edema, no obvious rash MSK: FROM x 4 Neuro: CN 2-12 grossly intact, no new focal deficits Psych: calm - Constitutional Vitals: Temp Pulse Resp BP Pulse Ox 98.8 F 56 L 20 107/74 100 09/26/17 00:12 09/26/17 00:12 09/26/17 00:12 09/26/17 00:12 09/26/17 00:12 General appearance: Present: no acute distress Results - Labs CBC & Chem 7: 09/25/17 16:34 09/25/17 16:34 Labs: Laboratory Last Values WBC 6.4 K/mm3 (4.5-11.0) 09/25/17 16:34 RBC 4.90 M/mm3 (3.65-5.03) 09/25/17 16:34 Hgb 14.4 gm/dl (11.8-15.2) 09/25/17 16:34 Hct 45.3 % (35.5-45.6) 09/25/17 16:34 MCV 93 fl (84-94) 09/25/17 16:34 MCH 29 pg (28-32) 09/25/17 16:34 MCHC 32 % (32-34) 09/25/17 16:34 RDW 15.5 % (13.2-15.2) H 09/25/17 16:34 Plt Count 221 K/mm3 (140-440) 09/25/17 16:34 Lymph % (Auto) 31.5 % (13.4-35.0) 09/25/17 16:34 [place] % (Auto) 9.8 % (0.0-7.3) H 09/25/17 16:34 Eos % (Auto) 0.6 % (0.0-4.3) 09/25/17 16:34 Baso % (Auto) 0.3 % (0.0-1.8) 09/25/17 16:34 Lymph # 2.0 K/mm3 (1.2-5.4) 09/25/17 16:34 [place] # 0.6 K/mm3 (0.0-0.8) 09/25/17 16:34 Eos # 0.0 K/mm3 (0.0-0.4) 09/25/17 16:34 Baso # 0.0 K/mm3 (0.0-0.1) 09/25/17 16:34 Seg Neutrophils % 57.8 % (40.0-70.0) 09/25/17 16:34 Seg Neutrophils # 3.7 K/mm3 (1.8-7.7) 09/25/17 16:34 PT 15.6 Sec. (12.2-14.9) H 09/20/17 23:07 INR 1.17 (0.87-1.13) H 09/20/17 23:07 APTT 28.8 Sec. (24.2-36.6) 09/20/17 23:07 D-Dimer 490.77 ng/mlDDU (0-234) H 09/20/17 17:19 Heparin Anti-Xa Level 0.72 U.I./ml (0.3-0.7) H 09/25/17 21:06 POC ABG pH 7.415 (7.35-7.45) 09/23/17 15:00 POC ABG pCO2 36.7 (35-45) 09/23/17 15:00 POC ABG pO2 88 (80-105) 09/23/17 15:00 POC ABG HCO3 23.5 09/23/17 15:00 POC ABG Total CO2 25 09/23/17 15:00 POC ABG O2 Sat 97 09/23/17 15:00 POC ABG Base Excess -1 09/23/17 15:00 FiO2 21 % 09/23/17 15:00 Sodium 138 mmol/L (137-145) 09/25/17 16:34 Potassium 3.8 mmol/L (3.6-5.0) 09/25/17 16:34 Chloride 96.7 mmol/L (98-107) L 09/25/17 16:34 Carbon Dioxide 29 mmol/L (22-30) 09/25/17 16:34 Anion Gap 16 mmol/L 09/25/17 16:34 BUN 21 mg/dL (9-20) H 09/25/17 16:34 Creatinine 1.2 mg/dL (0.8-1.5) 09/25/17 16:34 Estimated GFR > 60 ml/min 09/25/17 16:34 BUN/Creatinine Ratio 18 % 09/25/17 16:34 Glucose 116 mg/dL (75-100) H 09/25/17 16:34 POC Glucose 108 (70-105) H 09/23/17 15:52 Calcium 8.8 mg/dL (8.4-10.2) 09/25/17 16:34 Magnesium 1.90 mg/dL (1.7-2.3) 09/20/17 17:19 Total Bilirubin 1.10 mg/dL (0.1-1.2) 09/22/17 04:00 AST 39 units/L (5-40) 09/22/17 04:00 ALT 51 units/L (7-56) 09/22/17 04:00 Alkaline Phosphatase 76 units/L (35-129) 09/22/17 04:00 Total Creatine Kinase 84 units/L (55-170) 09/21/17 06:18 CK-MB (CK-2) 2.4 ng/mL (0.0-4.0) 09/21/17 06:18 CK-MB (CK-2) Rel Index 2.8 (0-4) 09/21/17 06:18 Troponin T < 0.010 ng/mL (0.00-0.029) 09/21/17 06:18 NT-Pro-B Natriuret Pep 1189 pg/mL (0-450) H 09/20/17 17:19 Total Protein 7.2 g/dL (6.3-8.2) 09/22/17 04:00 Albumin 3.8 g/dL (3.9-5) L 09/22/17 04:00 Albumin/Globulin Ratio 1.1 % 09/22/17 04:00 Triglycerides 111 mg/dL (2-149) 09/22/17 04:00 Cholesterol 159 mg/dL (50-199) 09/22/17 04:00 LDL Cholesterol Direct 97 mg/dL (50-130) 09/22/17 04:00 HDL Cholesterol 41 mg/dL (40-59) 09/22/17 04:00 Cholesterol/HDL Ratio 3.87 % 09/22/17 04:00 TSH 0.971 mlU/mL (0.270-4.200) 09/21/17 11:15 Free T4 1.32 ng/dL (0.76-1.46) 09/21/17 11:15 Urine Color Yellow (Yellow) 09/20/17 21:30 Urine Turbidity Clear (Clear) 09/20/17 21:30 Urine pH 5.0 (5.0-7.0) 09/20/17 21:30 Ur Specific [place] 1.046 (1.003-1.030) H 09/20/17 21:30 Urine Protein 100 mg/dl mg/dL (Negative) 09/20/17 21:30 Urine Glucose (UA) Neg mg/dL (Negative) 09/20/17 21:30 Urine Ketones Tr mg/dL (Negative) 09/20/17 21:30 Urine Blood Neg (Negative) 09/20/17 21:30 Urine Nitrite Neg (Negative) 09/20/17 21:30 Urine Bilirubin Neg (Negative) 09/20/17 21:30 Urine Urobilinogen 2.0 mg/dL (<2.0) 09/20/17 21:30 Ur Leukocyte Esterase Neg (Negative) 09/20/17 21:30 Urine WBC (Auto) 1.0 /HPF (0.0-6.0) 09/20/17 21:30 Urine RBC (Auto) 1.0 /HPF (0.0-6.0) 09/20/17 21:30 U Epithel Cells (Auto) < 1.0 /HPF (0-13.0) 09/20/17 21:30 Urine Mucus 1+ /HPF 09/20/17 21:30 Urine Opiates Screen Presumptive negative 09/20/17 21:30 Urine Methadone Screen Presumptive negative 09/20/17 21:30 Ur Barbiturates Screen Presumptive negative 09/20/17 21:30 Ur Phencyclidine Scrn Presumptive negative 09/20/17 21:30 Ur Amphetamines Screen Presumptive negative 09/20/17 21:30 U Benzodiazepines Scrn Presumptive negative 09/20/17 21:30 Urine Cocaine Screen Presumptive negative 09/20/17 21:30 U Marijuana (THC) Screen Presumptive negative 09/20/17 21:30 Drugs of Abuse Note Disclamer 09/20/17 21:30
[2017-09-26 05:37] LABS: Basophils % (Auto) 0.2 % (0.0-1.8); Eosinophils % (Auto) 0.5 % (0.0-4.3); Hematocrit 44.3 % (35.5-45.6); Hemoglobin 14.7 gm/dl (11.8-15.2); Lymphocytes # (Auto) 2.4 K/mm3 (1.2-5.4); Lymphocytes % (Auto) 31.9 % (13.4-35.0); Mean Corpuscular HGB Conc 33 % (32-34); Mean Corpuscular Hemoglobin 31 pg (28-32); Mean Corpuscular Volume 92 fl (84-94); Monocytes # (Auto) 0.8 K/mm3 (0.0-0.8); Platelet Count 210 K/mm3 (140-440); Red Blood Count 4.83 M/mm3 (3.65-5.03); Red Cell Distribution Width 15.3 % (13.2-15.2)
[2017-09-26 05:47] LABS: INR 1.12 (0.87-1.13)
[2017-09-26 05:49] LABS: Heparin anti-factor XA 0.39 U.I./ml (0.3-0.7)
[2017-09-26 05:59] LABS: BUN/Creatinine Ratio 17; Blood Urea Nitrogen 20 mg/dL (9-20); Hemolysis Index 14
[2017-09-26] MEDS ORDERED: LASIX PO SCH (06:00)
[2017-09-26] MEDS ORDERED: HEPARIN/NS 5000 UNIT/500ML(CATH LAB) 1,000 ML IR ONE (08:11)
[2017-09-26] MEDS ORDERED: HEPARIN 10,000 UNITS/10 ML ONE (08:11)
[2017-09-26] MEDS ORDERED: NITROGLYCERIN SYRINGE 3 ML ONE (08:11)
[2017-09-26] MEDS ORDERED: CALAN ONE (08:11)
[2017-09-26] MEDS ORDERED: XYLOCAINE 2% INFILTRATI ONE (08:11)
[2017-09-26] MEDS ORDERED: NACL 0.9% 500 ML 500 ML ONE (08:24)
[2017-09-26] MEDS ORDERED: SUBLIMAZE ONE (08:25)
[2017-09-26] MEDS ORDERED: VERSED ONE (08:25)
[2017-09-26] MEDS ORDERED: CORDARONE PO SCH (10:00)
[2017-09-26] MEDS: ZESTRIL PO SCH (10:00)
[2017-09-26] MEDS: ALDACTONE PO SCH (10:38)
[2017-09-26] MEDS: PEPCID PO SCH (10:39)
[2017-09-26] MEDS: LOPRESSOR PO SCH (10:39)
--- NOTE | 2017-09-26 10:48 | Progress Note ---
Assessment and Plan S/p [facility] this AM with no significant coronary disease. Initiate Eliquis 5mg BID. Continue PO amio, lopressor, lisinopril, lasix, aldactone. LifeVest recommended in setting of cardiomyopathy. Pt declines LifeVest at this time and wishes to readdress LifeVest/AICD as OP. Pt with probable sleep apnea. For sleep study as OP per pulmonary. Currently stable cardiac status. Pt may discharge home today following completion of post-cath order set. Follow up in our [place] office with Dr. Barraza on 10/03/2017 @ 3:00PM. Follow up in our [place] office with Dr. Cummings for EP consultation on 2017 @ 8:30AM. Assessment and plan reviewed with pt at bedside. The patient has been seen in conjunction with Dr. Amber Reyes who agrees with the assessment and plan of care. - Patient Problems (1) Acute systolic heart failure Current Visit: Yes Status: Acute (2) Dilated cardiomyopathy Current Visit: Yes Status: Chronic (3) Right ventricular dysfunction Current Visit: Yes Status: Acute (4) Atrial flutter with rapid ventricular response Current Visit: Yes Status: Acute (5) HTN (hypertension) Current Visit: Yes Status: Chronic (6) Obesity Current Visit: Yes Status: Chronic (7) Elevated d-dimer Current Visit: Yes Status: Acute (8) Sleep apnea Current Visit: Yes Status: Suspected Subjective Date of service: 09/26/17 Principal diagnosis: Atrial Flutter with RVR; HFrEF (25%); Morbid Obesity; Likely TAURUS Interval history: pt for [facility] this AM. no current complaints. Tele reviewed - pt remains in AFlutter with CVR. Objective Last Vital Signs Temp 98.4 F 09/26/17 09:58 Pulse 73 09/26/17 10:00 Resp 18 09/26/17 10:00 BP 133/98 09/26/17 09:58 Pulse Ox 98 09/26/17 10:00 - Physical Examination General: No Apparent Distress HEENT: Positive: PERRL, Normocephaly, Mucus Membranes Moist Neck: Positive: neck supple, trachea midline Cardiac: Positive: irregularly irregular, S1/S2 Lungs: Positive: Decreased Breath Sounds Neuro: Positive: Grossly Intact, Cranial Nerve 2-12 Intact Abdomen: Positive: Soft. Negative: Tender Skin: Positive: Clear. Negative: Rash, Wound Musculoskeletal: No Pain, Normal Range of Motion Extremities: Absent: edema - Labs and Meds Coagulation 09/26/17 Range/Units 04:46 PT 15.0 H (12.2-14.9) Sec. INR 1.12 (0.87-1.13) CBC 09/25/17 09/26/17 Range/Units 16:34 04:46 WBC 6.4 7.5 (4.5-11.0) K/mm3 RBC 4.90 4.83 (3.65-5.03) M/mm3 Hgb 14.4 14.7 (11.8-15.2) gm/dl Hct 45.3 44.3 (35.5-45.6) % Plt Count 221 210 (140-440) K/mm3 Lymph # 2.0 2.4 (1.2-5.4) K/mm3 [place] # 0.6 0.8 (0.0-0.8) K/mm3 Eos # 0.0 0.0 (0.0-0.4) K/mm3 Baso # 0.0 0.0 (0.0-0.1) K/mm3 Comprehensive Metabolic Panel 09/25/17 09/26/17 Range/Units 16:34 04:46 Sodium 138 141 (137-145) mmol/L Potassium 3.8 3.9 (3.6-5.0) mmol/L Chloride 96.7 L 100.4 (98-107) mmol/L Carbon Dioxide 29 29 (22-30) mmol/L BUN 21 H 20 (9-20) mg/dL Creatinine 1.2 1.2 (0.8-1.5) mg/dL Glucose 116 H 104 H (75-100) mg/dL Calcium 8.8 9.0 (8.4-10.2) mg/dL - Imaging and Cardiology EKG: report reviewed, image reviewed Echo: report reviewed (EF 20-25%, mild LVH, RV mild to mod dilated, RV systolic function severely reduced, RA severely dilated, ) - Telemetry EKG Rhythm: Atrial Flutter - Allied health notes Allied health notes reviewed: nursing
--- NOTE | 2017-09-26 15:21 | Progress Note ---
Assessment and Plan Atrial fibrillation with RVR CMOP (HFrEF) HTN (poorly controlled) Morbid obesity Probable TAURUS Probable Pulmonary HTN - Continue with amiodarone for rate control - Added one dose of metoprolol for rate control - continue eliquis for anticoagulation - 2D echocardiogram shows HFrEF at 25% - cardiology f/up post discharge - Sleep study as out patient & sleep clinic f/up - Life style modifications and weight loss counselled - continue GI & VTE prophylaxis - Flu & pneumovax addressed per protocol - d/c planning ongoing concurrently ....25' Subjective Date of service: 09/26/17 Principal diagnosis: Atrial Flutter with RVR; HFrEF (25%); Morbid Obesity; Likely TAURUS Interval history: Patient is seen today for: Atrial Flutter with RVR; HFrEF (25%); Morbid Obesity ; Likely TAURUS Seen and examined at bedside; 24hour events reviewed; nursing and respiratory care staff consulted; no adverse overnight events reported to me; sitting up in bed; tolerating eliquis; denies acute chest pains or palpitations; No N/V/F/C Objective Vital Signs - 12hr 09/26/17 09/26/17 09/26/17 04:33 04:34 07:45 Temperature 97.8 F 97.8 F Pulse Rate 52 L 49 L 118 H Pulse Rate [ From Monitor] Respiratory 20 185 H Rate Blood Pressure 110/69 Blood Pressure 143/109 [Right] O2 Sat by Pulse 100 100 94 Oximetry 09/26/17 09/26/17 09/26/17 09:58 10:00 10:15 Temperature 98.4 F 98.0 F Pulse Rate 73 78 Pulse Rate [ 73 From Monitor] Respiratory 18 18 20 Rate Blood Pressure 133/98 132/85 Blood Pressure [Right] O2 Sat by Pulse 97 98 97 Oximetry 09/26/17 09/26/17 09/26/17 10:30 10:45 12:10 Temperature 98.2 F 98.0 F 98.0 F Pulse Rate 78 78 73 Pulse Rate [ From Monitor] Respiratory 18 18 20 Rate Blood Pressure 146/70 138/89 148/89 Blood Pressure [Right] O2 Sat by Pulse 97 97 97 Oximetry 09/26/17 09/26/17 09/26/17 12:24 12:26 13:28 Temperature 98.0 F 98.0 F Pulse Rate 75 73 80 Pulse Rate [ From Monitor] Respiratory 18 20 Rate Blood Pressure 139/89 142/89 Blood Pressure [Right] O2 Sat by Pulse 98 98 Oximetry Constitutional: no acute distress, alert Eyes: non-icteric ENT: oropharynx moist, other (mallampatti IV oropharynx) Neck: supple, no lymphadenopathy, no JVD, other (large neck circumference) Effort: normal Ascultation: Bilateral: clear, diminished breath sounds Percussion: Bilateral: not dull Cardiovascular: irregular rhythm, murmur noted, other (rate controlled) Gastrointestinal: normoactive bowel sounds, soft, non-tender, other (no palpable HSM) Integumentary: rash (stasis dermatitis) Extremities: no cyanosis, pulses normal, no ischemia or petechiae, edema Neurologic: normal mental status, non-focal exam, pupils equal and round, CN II- XII normal Psychiatric: mood appropriate, affect normal CBC and BMP: 09/26/17 04:46 09/26/17 04:46 ABG, PT/INR, D-dimer: ABG POC ABG pH 7.415 (7.35-7.45) 09/23/17 15:00 POC ABG pCO2 36.7 (35-45) 09/23/17 15:00 POC ABG pO2 88 (80-105) 09/23/17 15:00 POC ABG HCO3 23.5 09/23/17 15:00 POC ABG Total CO2 25 09/23/17 15:00 POC ABG O2 Sat 97 09/23/17 15:00 PT/INR, D-dimer PT 15.0 Sec. (12.2-14.9) H 09/26/17 04:46 INR 1.12 (0.87-1.13) 09/26/17 04:46 D-Dimer 490.77 ng/mlDDU (0-234) H 09/20/17 17:19 Abnormal lab findings: Abnormal Labs 09/20/17 09/20/17 09/20/17 17:19 17:19 17:19 Hgb Hct RDW 15.4 H [place] % (Auto) 9.8 H PT INR D-Dimer 490.77 H Heparin Anti-Xa Level Sodium Chloride BUN Glucose POC Glucose Total Bilirubin NT-Pro-B Natriuret Pep 1189 H Albumin Ur Specific [place] 04/09/20/17 09/20/17 17:19 21:30 23:07 Hgb Hct RDW [place] % (Auto) PT 15.6 H INR 1.17 H D-Dimer Heparin Anti-Xa Level Sodium Chloride BUN Glucose POC Glucose Total Bilirubin 2.00 H NT-Pro-B Natriuret Pep Albumin 3.8 L Ur Specific [place] 1.046 H 09/22/17 09/22/17 09/22/17 00:19 04:00 05:24 Hgb Hct RDW [place] % (Auto) PT INR D-Dimer Heparin Anti-Xa Level Sodium 134 L Chloride 94.5 L BUN 21 H Glucose 240 H POC Glucose 107 H 108 H Total Bilirubin NT-Pro-B Natriuret Pep Albumin 3.8 L Ur Specific [place] 09/22/17 09/23/17 09/23/17 17:52 11:09 15:52 Hgb Hct RDW [place] % (Auto) PT INR D-Dimer Heparin Anti-Xa Level Sodium Chloride BUN Glucose 101 H POC Glucose 121 H 108 H Total Bilirubin NT-Pro-B Natriuret Pep Albumin Ur Specific [place] 09/24/17 09/24/17 09/25/17 05:32 07:48 16:34 Hgb 15.9 H Hct 48.7 H RDW 15.5 H [place] % (Auto) 9.8 H PT INR D-Dimer Heparin Anti-Xa Level 0.20 L Sodium Chloride BUN Glucose POC Glucose Total Bilirubin NT-Pro-B Natriuret Pep Albumin Ur Specific [place] 09/25/17 09/25/17 09/26/17 16:34 21:06 04:46 Hgb Hct RDW 15.3 H [place] % (Auto) 11.0 H PT INR D-Dimer Heparin Anti-Xa Level 0.72 H Sodium Chloride 96.7 L BUN 21 H Glucose 116 H POC Glucose Total Bilirubin NT-Pro-B Natriuret Pep Albumin Ur Specific [place] 09/26/17 09/26/17 04:46 04:46 Hgb Hct RDW [place] % (Auto) PT 15.0 H INR D-Dimer Heparin Anti-Xa Level Sodium Chloride BUN Glucose 104 H POC Glucose Total Bilirubin NT-Pro-B Natriuret Pep Albumin Ur Specific [place] CT scan - chest: image reviewed (no P.E.) Allied health notes reviewed: nursing
--- NOTE | 2017-09-26 15:49 | Discharge Summary ---
Providers - Providers Date of Admission: 09/20/17 22:40 Date of discharge: 09/26/17 Attending physician: JESSY VALDIVIA 09/21/17 06:42 Consult to Physician [CONS] Routine Comment: Consulting Provider: ZARIA ROACH Physician Instructions: Reason For Exam: NEW ONSET A.FIB 09/21/17 14:50 Consult to Physician [CONS] Routine Comment: Consulting Provider: DO EDMONDS Physician Instructions: Reason For Exam: aflutter with RVR, evaluate for ICU 09/22/17 15:41 Consult to Dietitian/Nutrition [CONS] Routine Physician Instructions: Reason For Exam: Reason for Consult: obesity, weight loss 09/26/17 10:44 Consult to Cardiac Rehabilitation [CONS] Routine Reason For Exam: Cardiac Rehab Evaluation Primary care physician: WHITLEY IQBAL Hospitalization Condition: Fair Hospital course: Assessment and Plan Assessment and plan: Patient is a 46 yo man with a history of untreated hypertension for at least a year and morbid obesity who presented initially to urgent care with sob and leg edema.pw with svt and RVR as high as 160s, LE edema and sob -A. flutter with rvr: on iv heparin drip, was transitioned to oral rate control (off IV drips), - cath----LH, done today was negative--f/u with [facility] -Untreated Hypertension: low salt diet, antihypertensives -Morbid obesity: need lifestyle modification -Grief reaction from father sudden in May; counseled, will refer to pyschiatry upon dc -Suspect TAURUS: has been counseled on getting outpatient sleep study as outpatient with Dr Edmonds Disposition: DC-01 TO HOME OR SELFCARE Time spent for discharge: 32 min Core Measure Documentation - Palliative Care Palliative Care/ Comfort Measures: Not Applicable - Core Measures Any of the following diagnoses?: heart failure - Heart Failure Discharge Requirements SADIQ/ARB for LVSD if EF <40%: Yes Beta mari at discharge: Yes Exam - Constitutional Vitals: Temp Pulse Resp BP Pulse Ox 98.0 F 80 20 142/89 98 09/26/17 12:26 09/26/17 13:28 09/26/17 12:26 09/26/17 12:26 09/26/17 12:26 General appearance: Present: no acute distress, well-nourished - EENT Eyes: Present: PERRL ENT: hearing intact, clear oral mucosa - Neck Neck: Present: supple, normal ROM - Respiratory Respiratory effort: normal Respiratory: bilateral: CTA - Cardiovascular Heart rate: 76 Rhythm: irregularly irregular Heart Sounds: Present: S1 & S2. Absent: rub, click - Extremities Extremities: no ischemia, pulses intact, pulses symmetrical, No edema Peripheral Pulses: within normal limits - Abdominal General gastrointestinal: Present: soft, non-tender, non-distended, normal bowel sounds Male genitourinary: Present: normal - Rectal Rectal Exam: deferred - Integumentary Integumentary: Present: clear, warm, dry - Musculoskeletal Musculoskeletal: gait normal, strength equal bilaterally - Psychiatric Psychiatric: appropriate mood/affect, intact judgment & insight - Neurologic Neurologic: CNII-XII intact, moves all extremities - Allied Health Allied health notes reviewed: nursing, case management Plan Activity: no restrictions Diet: low fat, low cholesterol, low salt Follow up with: WHITLEY IQBAL MD [Primary Care Provider] - 3-5 Days PRIMARY CAREMD [Referring] - 7 Days
--- NOTE | 2017-09-26 16:28 | Cardiac Catherization Report ---
REFERRING PHYSICIAN: Dr. Smart. INDICATION FOR PROCEDURE: The patient is a pleasant 46-year-old -[place] gentleman with a newly diagnosed severe cardiomyopathy, found to have atrial flutter with variable ventricular response, presents with shortness of breath, referred for left heart catheterization due to the finding of severe cardiomyopathy. Risks, benefits, alternatives discussed prior to obtaining informed consent. The patient was brought to catheterization lab in a postabsorptive state, prepped and draped in sterile fashion. Umer's test in right hand was normal. A 2 mL of 2% lidocaine used to anesthetize the right wrist. A standard 6-[place]bourg[place] hydrophilic sheath was used to cannulate the right radial artery via modified Seldinger technique. All exchanges performed to exchange a J-tip guidewire. JL3.5 catheter used to engage left main. No dampening or vegetation. Cineangiography performed in all projections. JR4 catheter used to cross the aortic valve under fluoroscopic guidance. Left ventriculography performed in 30 FLORES and 30 MAORI projections via hand injections, catheter flushed. Manual pullback performed with continuous pressure monitoring. Catheter used to engage the right coronary. No dampening or ventricularization. Cineangiography performed in all projections. Next, catheter removed from the body of wire, sheath removed. Manual pressure used to achieve hemostasis. I directly supervised the administration of moderate sedation from 8:58 to 9:20 a.m. DATA: Aortic pressure is 160/100, LV pressure is 160, LVEDP of 30 mmHg. Left ventriculography reveals severe global left ventricular hypokinesis, estimated ejection fraction of 10-15%. This is a right dominant system. Right coronary is a moderate sized vessel, courses AV groove, distally bifurcates in the posterior and posterolateral branch, no discrete stenosis noted. Left main without significant disease, bifurcates in left anterior descending and left circumflex. Left circumflex is a moderate sized vessel, courses AV groove, distally bifurcates in to the OM branch and the true AV groove circ. No significant disease. LAD is a large vessel, courses anterior intergroove, wraps around the apex, no significant disease in LAD or diagonal systems. CONCLUSIONS: 1. No angiographic evidence of significant epicardial coronary disease in this right dominant system. 2. Severe global left hypokinesis, estimated ejection fraction of 10-15%. 3. Mildly elevated LVEDP. 4. No evidence of aortic stenosis. This patient with atrial flutter with variable ventricular response, heart rate in the 100-110 range. Restart systemic anticoagulation. Standard right radial care. Continue with diuresis. These findings are consistent with severe nonischemic cardiomyopathy, unclear if this is rate related or idiopathic. Results of procedure explained to the patient. No family is available at this time. All questions and concerns were addressed. JOB# [id number] SBM/NTS
[2017-09-26 17:18] VITALS: BP 114/78
[2017-09-26] MEDS ORDERED: ELIQUIS PO SCH (22:00)
== END 2017-09-26 18:27 | disposition home or self-care (01) | DRG 286 ==
LOC: ED 16:22 → EEVIPCON 22:40 → 4A 22:40 → CC1 09-21 16:43 → 4A 09-23 19:29
PROVIDERS: ADMIT Internal Medicine; ATTEND Internal Medicine
PROC: 5A09357 Assistance with Respiratory Ventilation, Less than 24 Consecutive Hours, Continuous Positive Airway Pressure (ICD-10-PCS; 2017-09-23)
PROC: 4A033R1 Measurement of Arterial Saturation, Peripheral, Percutaneous Approach (ICD-10-PCS; 2017-09-23)
PROC: 4A023N7 Measurement of Cardiac Sampling and Pressure, Left Heart, Percutaneous Approach (ICD-10-PCS; principal; 2017-09-26)
PROC: B2111ZZ Fluoroscopy of Multiple Coronary Arteries using Low Osmolar Contrast (ICD-10-PCS; 2017-09-26)
PROC: B2151ZZ Fluoroscopy of Left Heart using Low Osmolar Contrast (ICD-10-PCS; 2017-09-26)
DX: I48.92 Unspecified atrial flutter (principal); J96.00 Acute respiratory failure, unspecified whether with hypoxia or hypercapnia; I50.21 Acute systolic (congestive) heart failure; Z68.42 Body mass index [BMI] 45.0-49.9, adult; D68.59 Other primary thrombophilia; I11.0 Hypertensive heart disease with heart failure; I47.1 Supraventricular tachycardia; I42.0 Dilated cardiomyopathy; I48.91 Unspecified atrial fibrillation; E66.01 Morbid (severe) obesity due to excess calories; G47.33 Obstructive sleep apnea (adult) (pediatric); Z71.3 Dietary counseling and surveillance
CPT/HCPCS: 36415; 71045; 71275; 80048; 80053; 80061; 80307; 81001; 82550; 82553; 82803; 82962; 83735; 83880; 84439; 84443; 84484; 85014; 85018; 85025; 85027; 85049; 85379; 85520; 85610; 85730; 93005; 93010; 93306; 93458; 94660; 96374; 96375; C1894; J0153; J0282; J1160; J1644; J1940; J2250; J3010; J7040; J7060; Q9967

== ENCOUNTER 2017-12-27 11:00 | Outpatient (CLI) | payer BC | END 2017-12-27 11:01 | disposition home or self-care (01) | LOC: SLR 11:00 | PROVIDERS: ATTEND Otolaryngology | DX: G47.30 Sleep apnea, unspecified (principal); I10 Essential (primary) hypertension; E03.9 Hypothyroidism, unspecified | CPT/HCPCS: 95810 ==